=== PATIENT | female | born 1970 | race African-American/Black ===

== ENCOUNTER 2018-09-21 08:40 | Inpatient (IN) | payer OTHER, SELFPAY ==
[2018-09-21 10:50] LABS: Urine Bacteria <20 /HPF (<20); Urine Culture Reflex Order REFLEXED; Urine RBC >50 /HPF (NONE SEEN)
[2018-09-21 11:44] LABS: Absolute Lymphocytes (CBC) 3.1 K/uL (0.7-4.9); Basophils % 0.3 % (0-1.3); Hematocrit 23.6 % (36.0-45.0); Lymphocytes % 67.3 % (15.3-44.8); MPV 9.4 fL (7.6-11.3); RBC Red Blood Cell Count 4.41 M/uL (3.86-4.86)
--- NOTE | 2018-09-21 12:29 | ER ---
Nurse's Notes [facility] Name: Shauna Silva Age: 48 yrs Sex: Female : 1970 Arrival Date: 09/21/2018 Time: 08:44 Bed 20 Private MD: Diagnosis: Other abnormal uterine and vaginal bleeding;Iron deficiency anemia secondary to blood loss (chronic) Presentation: 09/21 09:02 Presenting complaint: Patient states: "I've had my menstrual period for 12 days now". aa5 Pt denies pain. Transition of care: patient was not received from another setting of care. Onset of symptoms was September 2018. Risk Assessment: Do you want to hurt yourself or someone else? Patient reports no desire to harm self or others. Initial Sepsis Screen: Does the patient meet any 2 criteria? No. Patient's initial sepsis screen is negative. Does the patient have a suspected source of infection? No. Patient's initial sepsis screen is negative. Care prior to arrival: None. 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 - Social history:: Smoking status: Patient/guardian denies using tobacco. - Ebola Screening: : No symptoms or risks identified at this time. Screenin:35 Abuse screen: Denies threats or abuse. Nutritional screening: No deficits noted. tw2 Tuberculosis screening: No symptoms or risk factors identified. Fall Risk None identified. Assessment: 09:55 General: Appears in no apparent distress. Behavior is calm, cooperative, appropriate tw2 for age. Pain: Denies pain. Neuro: Level of Consciousness is awake, alert, obeys commands, Oriented to person, place, time, situation. Cardiovascular: Heart tones S1 S2 Patient's skin is warm and dry. Respiratory: Airway is patent Respiratory effort is even, unlabored, Respiratory pattern is regular, symmetrical, Breath sounds are clear bilaterally. GI: No signs and/or symptoms were reported involving the gastrointestinal system. Abdomen is flat, non-distended. : Urine is jenn blood, Reports vaginal bleeding that is heavy flow since 12 days ago. EENT: No signs and/or symptoms were reported regarding the EENT system. Derm: No signs and/or symptoms reported regarding the dermatologic system. Musculoskeletal: Range of motion: intact in all extremities. 10:33 Reassessment: Patient appears in no apparent distress at this time. No changes from tw2 previously documented assessment. Patient and/or family updated on plan of care and expected duration. Pain level reassessed. Patient is alert, oriented x 3, equal unlabored respirations, skin warm/dry/pink. 12:00 Reassessment: Patient appears in no apparent distress at this time. No changes from tw2 previously documented assessment. Patient and/or family updated on plan of care and expected duration. Pain level reassessed. Patient is alert, oriented x 3, equal unlabored respirations, skin warm/dry/pink. 12:04 Reassessment: Dr. Cristobal at bedside discussing results and poc at this time. tw2 13:06 Reassessment: Patient appears in no apparent distress at this time. No changes from tw2 previously documented assessment. Patient and/or family updated on plan of care and expected duration. Pain level reassessed. Patient is alert, oriented x 3, equal unlabored respirations, skin warm/dry/pink. 14:00 Reassessment: Patient appears in no apparent distress at this time. No changes from tw2 previously documented assessment. Patient and/or family updated on plan of care and expected duration. Pain level reassessed. Patient is alert, oriented x 3, equal unlabored respirations, skin warm/dry/pink. 14:50 Reassessment: SEE BLOOD TRANSFUSION RECORD in pts chart. tw2 14:58 Reassessment: Patient appears in no apparent distress at this time. No changes from tw2 previously documented assessment. Patient and/or family updated on plan of care and expected duration. Pain level reassessed. Patient is alert, oriented x 3, equal unlabored respirations, skin warm/dry/pink. 16:18 Reassessment: Patient appears in no apparent distress at this time. No changes from tw2 previously documented assessment. Patient and/or family updated on plan of care and expected duration. Pain level reassessed. Patient is alert, oriented x 3, equal unlabored respirations, skin warm/dry/pink. Vital Signs: 09:04 BP 147 / 88; Pulse 68; Resp 16 S; Temp 98.2(TE); Pulse Ox 100% on R/A; Weight 71.21 kg aa5 (R); Height 5 ft. 0 in. (152.40 cm) (R); Pain 0/10; 10:33 BP 147 / 73; Pulse 63; Resp 17; Pulse Ox 100% on R/A; tw2 11:59 BP 148 / 76; Pulse 56; Resp 17; Pulse Ox 100% on R/A; tw2 13:06 BP 101 / 76; Pulse 59; Resp 17; Temp 97.9(TE); Pulse Ox 100% ; tw2 14:33 BP 145 / 62; Pulse 61; Resp 16; Temp 97.6(TE); Pulse Ox 100% on R/A; tw2 14:55 BP 143 / 73; Pulse 60; Resp 16; Temp 97.8(TE); Pulse Ox 100% on R/A; tw2 09:04 Body Mass Index 30.66 (71.21 kg, 152.40 cm) aa5 ED Course: 08:44 Patient arrived in ED. rg4 09:03 Triage completed. aa5 09:03 Arm band placed on. aa5 09:50 Jori Cristobal MD is Attending Physician. gs 09:55 Call light in reach. Side rails up X 1. Pulse ox on. NIBP on. tw2 10:04 Ankita Henry RN is Primary Nurse. tw2 11:10 Initial lab(s) drawn, by mo, sent to lab. Inserted saline lock: 22 gauge in right mh5 antecubital area, using aseptic technique. Blood collected. 11:58 Notified ED physician of a critical lab result(s). Hgb 6.3. sg 12:28 Cheng Walter MD is Hospitalizing Provider. gs 12:41 T\\T\\S Sent. tw2 15:47 No provider procedures requiring assistance completed. Patient admitted, IV remains in tw2 place. Administered Medications: No medications were administered Outcome: 12:29 Decision to Hospitalize by Provider. gs 16:17 Admitted to Med/surg accompanied by nurse, accompanied by tech, via stretcher, room tw2 231, with chart, Report called to LIZET Ray 16:17 Condition: stable 16:17 Instructed on the need for admit, Demonstrated understanding of instructions. 16:18 Patient left the ED. tw2 Signatures: Alan Anderson RN RN sg Rajwinder Treviño RN RN aa5 Ankita Henry RN RN tw2 Stephanie Brown Maria [facility] Jori Cristobal MD MD
--- NOTE | 2018-09-21 12:30 | EDPHYS ---
Physician Documentation [facility] Name: Shauna Silva Age: 48 yrs Sex: Female : 1970 Arrival Date: 09/21/2018 Time: 08:44 Bed 20 Private MD: ED Physician Jori Cristobal HPI: 09/21 11:41 This 48 yrs old Black Female presents to ER via Ambulatory with complaints of Vaginal gs Bleeding. 11:41 The patient presents with vaginal bleeding that is moderate. Onset: The gs symptoms/episode began/occurred 5 day(s) ago. Modifying factors: The symptoms are alleviated by nothing, the symptoms are aggravated by nothing. Associated signs and symptoms: Pertinent positives: cramping, Pertinent negatives: dyspareunia, dysuria, fever. Severity of symptoms: At their worst the symptoms were moderate, in the emergency department the symptoms are unchanged. The patient has experienced similar episodes in the past, a few times, period was supposed to end 5 days ago. 12:10 transfusion maybe 10 years.. 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 - Social history:: Smoking status: Patient/guardian denies using tobacco. - Ebola Screening: : No symptoms or risks identified at this time. ROS: 11:41 All other systems are negative. gs Exam: 11:41 Head/Face: Normocephalic, atraumatic. Eyes: Pupils equal round and reactive to light, gs extra-ocular motions intact. Lids and lashes normal. Conjunctiva and sclera are non-icteric and not injected. Cornea within normal limits. Periorbital areas with no swelling, redness, or edema. ENT: Nares patent. No nasal discharge, no septal abnormalities noted. Tympanic membranes are normal and external auditory canals are clear. Oropharynx with no redness, swelling, or masses, exudates, or evidence of obstruction, uvula midline. Mucous membranes moist. Neck: Trachea midline, no thyromegaly or masses palpated, and no cervical lymphadenopathy. Supple, full range of motion without nuchal rigidity, or vertebral point tenderness. No Meningismus. Chest/axilla: Normal chest wall appearance and motion. Nontender with no deformity. No lesions are appreciated. Cardiovascular: Regular rate and rhythm with a normal S1 and S2. No gallops, murmurs, or rubs. Normal PMI, no JVD. No pulse deficits. Respiratory: Lungs have equal breath sounds bilaterally, clear to auscultation and percussion. No rales, rhonchi or wheezes noted. No increased work of breathing, no retractions or nasal flaring. Abdomen/GI: Soft, non-tender, with normal bowel sounds. No distension or tympany. No guarding or rebound. No evidence of tenderness throughout. Back: No spinal tenderness. No costovertebral tenderness. Full range of motion. Skin: Warm, dry with normal turgor. Normal color with no rashes, no lesions, and no evidence of cellulitis. MS/ Extremity: Pulses equal, no cyanosis. Neurovascular intact. Full, normal range of motion. Neuro: Awake and alert, GCS 15, oriented to person, place, time, and situation. Cranial nerves II-XII grossly intact. Motor strength 5/5 in all extremities. Sensory grossly intact. Cerebellar exam normal. Normal gait. 11:41 Constitutional: The patient appears alert, awake. 11:41 : Pelvic Exam: the exam is deferred. Vital Signs: 09:04 BP 147 / 88; Pulse 68; Resp 16 S; Temp 98.2(TE); Pulse Ox 100% on R/A; Weight 71.21 kg aa5 (R); Height 5 ft. 0 in. (152.40 cm) (R); Pain 0/10; 10:33 BP 147 / 73; Pulse 63; Resp 17; Pulse Ox 100% on R/A; tw2 11:59 BP 148 / 76; Pulse 56; Resp 17; Pulse Ox 100% on R/A; tw2 13:06 BP 101 / 76; Pulse 59; Resp 17; Temp 97.9(TE); Pulse Ox 100% ; tw2 14:33 BP 145 / 62; Pulse 61; Resp 16; Temp 97.6(TE); Pulse Ox 100% on R/A; tw2 14:55 BP 143 / 73; Pulse 60; Resp 16; Temp 97.8(TE); Pulse Ox 100% on R/A; tw2 09:04 Body Mass Index 30.66 (71.21 kg, 152.40 cm) aa5 MDM: 10:52 Patient medically screened. 11:41 Differential diagnosis: dysfunctional uterine bleeding, ectopic , gs menometrorrhagia. Data reviewed: vital signs, nurses notes, lab test result(s). 12:27 Counseling: I had a detailed discussion with the patient and/or guardian regarding: the gs historical points, exam findings, and any diagnostic results supporting the discharge/admit diagnosis, lab results, the need for further work-up and treatment in the hospital. Response to treatment: There is no appreciated change of the patient's symptoms at this time, and as a result, I will admit patient. Physician consultation: Cheng Walter MD and will see patient in inpatient room. 09/21 09:50 Order name: Urine Microscopic Only; Complete Time: 11:00 09/21 10:13 Order name: UA ga 09/21 10:54 Order name: Urine Culture [facility] 09/21 11:00 Order name: CBC with Diff 09/21 12:00 Order name: T\T\S [facility] 09/21 12:47 Order name: Manual Differential [facility] 09/21 09:50 Order name: Urine Dipstick-Ancillary (obtain specimen); Complete Time: 10:30 09/21 10:09 Order name: Urine Test (obtain specimen); Complete Time: 10:30 09/21 13:20 Order name: Packed RBC Leukored [facility] 09/21 14:18 Order name: Transfuse; Complete Time: 14:57 tw2 09/21 14:18 Order name: Consent for Blood Transfusion; Complete Time: 14:26 tw2 Administered Medications: No medications were administered Disposition: 09/21/18 12:29 Hospitalization ordered by Cheng Walter for Inpatient Admission. Preliminary diagnosis are Other abnormal uterine and vaginal bleeding, Iron deficiency anemia secondary to blood loss (chronic). - Bed requested for Telemetry/MedSurg (Inpatient). - Status is Inpatient Admission. tw2 - Condition is Stable. - Problem is an acute exacerbation. - Symptoms are unchanged. UTI on Admission? No Signatures: Dispatcher [employer] [facility] Stephanie Evangelista ms, Audri, RN RN aa5 Ankita Henry RN RN tw2 Jori Cristobal MD MD Corrections: (The following items were deleted from the chart) : 11:41 Counseling: I had a detailed discussion with the patient and/or guardian regarding: the historical points, exam findings, and any diagnostic results supporting the discharge/admit diagnosis, lab results, the need for outpatient follow up, an OB/Gyne specialist, 11:41 Response to treatment: the patient's symptoms have markedly improved after gs treatment, and as a result, I will discharge patient, 15:31 12:29 Hospitalization Ordered by Cheng Walter MD for Inpatient Admission. Preliminary ms diagnosis is Other abnormal uterine and vaginal bleeding; Iron deficiency anemia secondary to blood loss (chronic). Bed requested for Telemetry/MedSurg (Inpatient). Status is Inpatient Admission. Condition is Stable. Problem is an acute exacerbation. Symptoms are unchanged. UTI on Admission? No. gs 16:18 15:31 09/21/2018 12:29 Hospitalization Ordered by Cheng Walter MD for Inpatient tw2 Admission. Preliminary diagnosis is Other abnormal uterine and vaginal bleeding; Iron deficiency anemia secondary to blood loss (chronic). Bed requested for Telemetry/MedSurg (Inpatient). Status is Inpatient Admission. Condition is Stable. Problem is an acute exacerbation. Symptoms are unchanged. UTI on Admission? No. ms
[2018-09-21 12:46] LABS: Platelet Estimate ADEQ
[2018-09-21 12:47] LABS: Anisocytosis 3+; Blood Morphology Comment NOTED (NOT SEEN); Burr Cells 1+; Hypochromasia 3+; Poikilocytosis 2+; Target Cells 1+
[2018-09-21 12:50] LABS: Elliptocytes 1+
[2018-09-21] MEDS ORDERED: NA CHLORIDE 0.9% 500 ML ONE (14:34)
[2018-09-21] MEDS: NA CHLORIDE 0.9% 1,000 ML IV SCH (17:05)
[2018-09-21 17:40] LABS: Thyroid Stimulating Hormone 0.948 uIU/mL (0.360-3.740)
[2018-09-21 17:57] LABS: Urine Appearance CLOUDY; Urine Blood 3+ (NEG); Urine Color RED; Urine Glucose NEGATIVE (NEG); Urine Protein 3+ (NEG); Urine Specific Gravity 1.015 (1.005-1.030); Urine pH 5.5 (5.0-7.0)
[2018-09-21 17:58] LABS: Urine Bilirubin NEGATIVE (NEG); Urine Microscopic Reflex NO UMIC
[2018-09-21 18:21] LABS: Urine Appearance TURBID; Urine Blood 3+ (NEG); Urine Color RED; Urine Glucose NEGATIVE (NEG); Urine Protein 3+ (NEG); Urine Specific Gravity 1.015 (1.005-1.030); Urine pH 5.5 (5.0-7.0)
[2018-09-21] MEDS ORDERED: NA CHLORIDE 0.9% 250 ML ONE (18:26)
[2018-09-21 18:30] LABS: Urine Bilirubin NEGATIVE (NEG)
[2018-09-21 18:33] LABS: Urine Bacteria <20 /HPF (<20); Urine RBC LOADED /HPF (NONE SEEN)
[2018-09-21 18:38] LABS: Urine Culture Reflex Order NOT NEEDED
--- NOTE | 2018-09-21 20:44 | P.HP ---
Certification for Inpatient Patient admitted to: Inpatient With expected LOS: >2 Midnights Practitioner: I am a practitioner with admitting privileges, knowledge of patient current condition, hospital course, and medical plan of care. Services: Services provided to patient in accordance with Admission requirements found in Title 42 Section 412.3 of the Code of Federal Regulations Patient History Date of Service: 09/21/18 Reason for admission: Symptomatic anemia History of Present Illness: This is a 48 yr old female with no pmh admitted for prolonged menstrual bleeding and symptomatic anemia. Patient reports menstrual bleeding that has been ongoing for 12 days now. Previous menses was 2 weeks prior to this cycle. Prior to that, she reports menstrual cycles Q21-30 days. She reports that the bleeding is not heavy but has been persistent. She remembers 1 prior similar episode back in the . She does have a history of tubal ligation 25 yrs ago. She does report being sexually active. Denies any vaginal discharge, vaginismus, abdominal pain, nausea/vomiting, fevers or chills. She also denies any cp, sob. She endorses having some light headedness. She decided to come to the ER for further evaluation. In the ED, she was HDS stable but was found to have a Hgb of 6.3 At the time of my exam, she was AAOx3 and in no acute distress. Allergies No Known Allergies Allergy (Verified 09/21/18 16:22) Home medications list reviewed: Yes Home Medications: NK [No Home Meds] 09/21/18 - Past Medical/Surgical History Has patient received pneumonia vaccine in the past: No Diabetic: No -: High blood pressure -: Tubal Ligation -: Normal Spontenous Delivery - Family History Mother -: GI disease, Cancer Notes: Colon Ca - Social History Smoking Status: Never smoker Alcohol use: Yes CD- Drugs: No Caffeine use: Yes Place of Residence: Home Review of Systems 10-point ROS is otherwise unremarkable Physical Examination - Vital Signs Temperature: 98.1 F Blood Pressure: 164/75 Pulse: 57 Respirations: 16 Pulse Ox (%): 100 - Physical Exam General: Alert, In no apparent distress, Oriented x3 HEENT: Atraumatic, PERRLA, Mucous membr. moist/pink, EOMI, Sclerae nonicteric Neck: Supple, 2+ carotid pulse no bruit, No LAD, Without JVD or thyroid abnormality Respiratory: Clear to auscultation bilaterally, Normal air movement Cardiovascular: Regular rate/rhythm, Normal S1 S2 Gastrointestinal: Normal bowel sounds, No tenderness Musculoskeletal: No tenderness Integumentary: No rashes Neurological: Normal gait, Normal speech, Normal strength at 5/5 x4 extr, Normal tone, Normal affect Lymphatics: No axilla or inguinal lymphadenopathy - Studies Laboratory Data (last 24 hrs) 09/21/18 11:10: WBC 4.6, Hgb 6.3 L*, Hct 23.6 L, Plt Count 251 Assessment and Plan - Problems (Diagnosis) (1) Symptomatic anemia Current Visit: Yes Status: Acute Plan: Symptomatic acute blood loss anemia, secondary to abnormal uterine bleeding - Transfuse 2 units PRBC - Repeat labs - Monitor vital signs (2) Abnormal uterine bleeding (AUB) Current Visit: Yes Status: Acute Plan: 48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 Mccarthy. Recommendations appreciated - She will likely require outpatient follow up after discharge - Plan Admit to floor, monitor labs and vital signs. Transfuse 2 units PRBCs. - Advance Directives Does patient have a Living Will: No Does patient have a Durable POA for Healthcare: No Time Spent Managing Pts Care (In Minutes): 45
--- NOTE | 2018-09-21 21:26 | CON ---
Date of Consultation: 09/21/2018 Reason For Consultation: Severe anemia, probably chronic blood loss anemia and menorrhagia. History Of Present Illness: Patient is a 48-year-old female, 4, para 4, sta tus post tubal ligation, not , presented with onset of prolonged heavy bleeding. She has bee n bleeding for the past 12 days. Her LMP is 09/10/2018, day 12 today. She has had past history of anemia and transfusion in the 1990s about 20 years ago. She has not had any treatment for this and she has been doing well. Last gynecological exam was 5 years ago at the [facility] in [place]. She complains of heavy bleeding ongoing for the 12 days with clots. In the past, she has had normal periods every 30 days, 5 days of bleeding. Cramps have been mild and are still mild in nature. Jacobo es any pelvic pain or pressure or bloating. No other pelvic symptomatology. She is sexually active, new partner for 7 months. No urinary or bowel problems. Past Medical History: Significant for hypertension, patient not on any medication. Allergies: NO KNOWN DRUG ALLERGIES. Social History: No tobacco alcohol or drug use. 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 Past Surgical History: Significant for tubal ligation. Family History: No ovarian, uterine, breast, or colon cancer. Physical Examination: Vital Signs: Temperature 98.1, 57 for pulse rate, 164/75 is the recent blood pressure, respiratory r ate of 16, saturating 100% on room air. General: Patient is lying in her bed, pale, but in no acute distress. Alert and oriented Head and Neck: Normal. Lungs: Clear. Heart: Regular rate and rhythm. Abdomen: Soft, nondistended. Slightly full in the pelvic area. Nontender. Extremities: Unremarkable. Pelvic: There is large amount of blood. Cervix very posterior. No tumor palpated on the cervix; ho wever, tumor in the pelvic cavity, fibroids bilaterally. Both adnexa not palpable due to the presenc e of the large fibroid uterus. The uterus was nontender. There was no cervical motion tenderness ei ther. Vulva, vagina are normal. Urethra is unremarkable. Laboratory Data: Her labs show hemoglobin level of 6.3 with hematocrit of 23.6, her platelet count i s 251, and absolute neutrophil count 1.2, which is low. Peripheral smear just shows signs of chronic iron-deficiency anemia. Urine is positive, not sure why there were 2 specimens sent, one from 8 o'c lock in the morning and one from 4 o'clock this evening. The 4 o'clock specimen shows nitrite positi ve, 20 of rbc's on a good clean-catch specimen. However, she is asymptomatic. Assessment And Plan: 1.Chronic iron-deficiency anemia, most likely due to blood loss, chronic blood loss from her heavy p eriods. Oral iron starting now twice a day and then blood transfusions. Currently, I would recommen d that her transfusion should be to at least the level over 9 g. This would give the patient some bu ffer to get some treatment. 2.Menorrhagia (abnormal uterine bleeding likely leiomyomata and perimenopause). Check FSH level or follicle-stimulating hormone level. Recommend ordering a transvaginal ultrasound while she is still in the hospital. She will need treatment for bleeding to acutely stop the bleeding. I would prefer to give her depot medroxyprogesterone acetate 150 mg intramuscular dose here in the hospital. Estrog en less preferred due to high risk of venous thromboembolism at this age. 3.Plan to follow this patient up after the bleeding subsides in the office and do an endometrial bio psy or endometrial sampling procedure. 4.She needs a Pap smear as well since she has not been screened in more than 5 years. 5.Hypertension. This is uncontrolled. Patient is not on any medication. We will need control and I will leave this to the hospitalist. 6.Acute bacterial cystitis, most likely. I would follow up the culture. Since I have seen the micr oscopy, felt convinced that even though she is asymptomatic at this time given the fact that she is a dmitted here and she has a large fibroid uterus that could be impairing her ability to empty her blad radha, I would treat her with Macrobid 100 b.i.d. for 7 days. We will pass this information on to the hospitalist and we will leave it to their decision. She can follow up with me in the office in 1 wee k after discharge. Patient will call me in the office. Office information given. MERRY Voice ID: [id number] Report ID: [id number]
[2018-09-22 00:03] LABS: Hematocrit 29.6 % (36.0-45.0)
[2018-09-22 06:00] LABS: Hematocrit 26.6 % (36.0-45.0); MPV 9.4 fL (7.6-11.3); RBC Red Blood Cell Count 4.64 M/uL (3.86-4.86)
[2018-09-22 06:12] LABS: Protime INR 1.24
[2018-09-22] MEDS: NA CHLORIDE 0.9% 1,000 ML IV SCH ×2 (07:07→12:25)
[2018-09-22] MEDS: NITROFURAN MACRO 100 MG CAP PO SCH ×2 (07:07→20:13)
[2018-09-22 08:02] LABS: ALT/SGPT 7 U/L (12-78); AST/SGOT 12 U/L (15-37); Albumin 3.4 g/dL (3.4-5.0); Alkaline Phosphatase 46 U/L (45-117); BUN Blood Urea Nitrogen 11 mg/dL (7-18); Bicarbonate 25 mmol/L (21-32); Bilirubin Total 1.7 mg/dL (0.2-1.0); Glucose Level 82 mg/dL (74-106); Potassium 3.6 mmol/L (3.5-5.1); Protein, Total 7.2 g/dL (6.4-8.2); Sodium Level 146 mmol/L (136-145)
[2018-09-22 08:20] LABS: Anisocytosis 3+; Blood Morphology Comment NOTED (NOT SEEN); Hypochromasia 3+; Platelet Estimate ADEQ; Poikilocytosis 1+
[2018-09-22] MEDS ORDERED: POTASSIUM CL SA 10 MEQ TAB PO ONE (09:00)
--- NOTE | 2018-09-22 10:06 | RAD REPORT ---
EXAM DESCRIPTION: US - Transvaginal Study Probe - 09/22/2018 9:28 am CLINICAL HISTORY: Endometriosis;menorrhaghia COMPARISON none FINDINGS: The uterus measures 7 x 3 x 3cm. Multiple uterine fibroids. Largest measures 10 centimeter s. Fibroids appear subserosal, intramural and submucosal. Endometrial stripe is poorly visualized secondary to distortion by fibroids. Neither ovary seen secondary to overlying bowel gas. . Right and left adnexae are unremarkable. No significant free fluid is seen. IMPRESSION: Fibroid uterus
[2018-09-22] MEDS ORDERED: NA CHLORIDE 0.9% 250 ML ONE (10:17)
[2018-09-22] MEDS ORDERED: HYDRALAZINE HCL 20 MG/ML VIAL IV ONE (11:30)
[2018-09-22] MEDS ORDERED: MEDROXYPROGEST ACET 150 MG/ML IM SCH (12:00)
--- NOTE | 2018-09-22 13:01 | P.PN ---
Subjective Date of Service: 09/22/18 Chief Complaint: Symptomatic anemia Subjective: Improving Patient seen and examined at bedside. No family at bedside. Chart reviewed and case discussed with nursing staff. Continues to have active vaginal bleeding. Improved dizziness and lightheadedness. No other complaints or concerns this morning Review of Systems 10-point ROS is otherwise unremarkable Physical Examination - Vital Signs Temperature: 97.8 F Blood Pressure: 178/82 Pulse: 58 Respirations: 17 Pulse Ox (%): 100 - Physical Exam General: Alert, In no apparent distress, Oriented x3 HEENT: Atraumatic, PERRLA, EOMI Neck: Supple, JVD not distended Respiratory: Clear to auscultation bilaterally, Normal air movement Cardiovascular: Regular rate/rhythm, Normal S1 S2 Gastrointestinal: Normal bowel sounds, No tenderness Musculoskeletal: No tenderness Integumentary: No rashes Neurological: Normal speech, Normal tone, Normal affect Lymphatics: No axilla or inguinal lymphadenopathy Assessment And Plan - Current Problems (Diagnosis) (1) Symptomatic anemia Current Visit: Yes Status: Acute Plan: Improving. symptomatic acute blood loss anemia, secondary to abnormal uterine bleeding - Transfused 2 units PRBC; hemoglobin continues to be low at 7.2. 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 - Case discussed with Dr. Mccarthy. Recommendations appreciated - 150 mg IM Depo-Provera ordered - oral iron b.i.d. ordered - transvaginal ultrasound with a fibroid uterus - FSH ordered, will be followed up as an outpatient by gynecology. (3) Fibroid uterus Current Visit: Yes Status: Acute Plan: - she will follow up with gynecology as an outpatient for further colposcopy and endometrial biopsy as needed. She will also benefit from a Pap smear as an outpatient. Will provide gynecology information upon discharge. Qualifiers: Uterine leiomyoma location: unspecified location Qualified Code(s): D25.9 - Leiomyoma of uterus, unspecified (4) Acute cystitis Current Visit: Yes Status: Acute Plan: Patient currently on Macrobid 100 mg b.i.d.. We will complete a 7 day course. Qualifiers: Hematuria presence: without hematuria Qualified Code(s): N30.00 - Acute cystitis without hematuria (5) Hypertension Current Visit: Yes Status: Chronic Plan: We will start patient on lisinopril for blood pressure control. She has a history of hypertension, though not on any medications at this time. Qualifiers: Hypertension type: essential hypertension Qualified Code(s): I10 - Essential (primary) hypertension - Plan Admit to floor, monitor labs and vital signs. Transfuse 2 units PRBCs.
[2018-09-22] MEDS: FERROUS SULFATE 325 MG TAB PO SCH (20:13)
[2018-09-22] MEDS ORDERED: HYDROCODONE/APAP 10/325 TAB PO PRN (21:32)
[2018-09-22 23:28] LABS: Hematocrit 35.6 % (36.0-45.0)
[2018-09-23 06:51] LABS: Magnesium 2.4 mg/dL (1.8-2.4); Phosphorus 3.2 mg/dL (2.5-4.9)
[2018-09-23 06:52] LABS: ALT/SGPT 9 U/L (12-78); AST/SGOT 12 U/L (15-37); Albumin 3.7 g/dL (3.4-5.0); Alkaline Phosphatase 57 U/L (45-117); BUN Blood Urea Nitrogen 14 mg/dL (7-18); Bicarbonate 24 mmol/L (21-32); Bilirubin Total 1.7 mg/dL (0.2-1.0); Glucose Level 98 mg/dL (74-106); Potassium 3.3 mmol/L (3.5-5.1); Protein, Total 7.9 g/dL (6.4-8.2); Sodium Level 143 mmol/L (136-145)
[2018-09-23 07:34] LABS: Hematocrit 35.6 % (36.0-45.0); MPV 10.1 fL (7.6-11.3)
[2018-09-23] MEDS ORDERED: POTASSIUM CL SA 10 MEQ TAB PO ONE (08:03)
[2018-09-23] MEDS: NITROFURAN MACRO 100 MG CAP PO SCH (08:44)
[2018-09-23] MEDS: FERROUS SULFATE 325 MG TAB PO SCH (08:46)
[2018-09-23 09:26] LABS: Anisocytosis 3+; Blood Morphology Comment NOTED (NOT SEEN); Hypochromasia 2+; Platelet Estimate ADEQ; Poikilocytosis 2+; Target Cells 2+; Toxic Granulation 1+
[2018-09-23] MEDS ORDERED: LISINOPRIL 10 MG TAB PO SCH (11:19)
--- NOTE | 2018-09-23 13:04 | P.DS ---
Admission Date: 09/21/18 Discharge Date: 09/23/18 Disposition: ROUTINE DISCHARGE Discharge Condition: GOOD Reason for Admission: Symptomatic anemia Consultations: Gynecology Procedures: 4 units blood transfusion - Problems (1) Symptomatic anemia Current Visit: Yes Status: Acute (2) Abnormal uterine bleeding (AUB) Current Visit: Yes Status: Acute (3) Fibroid uterus Current Visit: Yes Status: Acute Qualifiers: Uterine leiomyoma location: unspecified location Qualified Code(s): D25.9 - Leiomyoma of uterus, unspecified (4) Acute cystitis Current Visit: Yes Status: Acute Qualifiers: Hematuria presence: without hematuria Qualified Code(s): N30.00 - Acute cystitis without hematuria (5) Hypertension Current Visit: Yes Status: Chronic Qualifiers: Hypertension type: essential hypertension Qualified Code(s): I10 - Essential (primary) hypertension Brief History of Present Illness: This is a 48 yr old female with no pmh admitted for prolonged menstrual bleeding and symptomatic anemia. Patient reports menstrual bleeding that has been ongoing for 12 days now. Previous menses was 2 weeks prior to this cycle. Prior to that, she reports menstrual cycles Q21-30 days. She reports that the bleeding is not heavy but has been persistent. She remembers 1 prior similar episode back in the . She does have a history of tubal ligation 25 yrs ago. She does report being sexually active. Denies any vaginal discharge, vaginismus, abdominal pain, nausea/vomiting, fevers or chills. She also denies any cp, sob. She endorses having some light headedness. She decided to come to the ER for further evaluation. In the ED, she was HDS stable but was found to have a Hgb of 6.3 At the time of my exam, she was AAOx3 and in no acute distress. Hospital Course: Patient was admitted for symptomatic anemia after prolonged menses, menstrual bleeding/ abnormal uterine bleeding. Gynecology was consulted. She was given 4 units PRBCs over the stay. Hemoglobin stabilized to above 10 x 2. She was given 150 mg IM Depo-Provera x1. She was started on oral iron. Transvaginal ultrasound was done which showed a fibroid uterus. FSH was ordered, I would send out lab and will be followed up by outpatient gynecology. She was also started on Macrobid 100 mg b.i.d. to complete a 7 day course for acute cystitis. Urine cultures did remain negative though. She was treated for UTI due to her fibroid uterus that may make it difficult for bladder emptying, increased interest for her urinary tract infection. Her blood pressure was high. Patient states that she had a history of hypertension, has not been on any medications for a year now. She was started on lisinopril, discharged on lisinopril for blood pressure control. She otherwise remained stable throughout the stay. Prior to discharge, she was alert oriented x3, in no acute distress and hemodynamically stable. She will follow up with her primary care physician in 2-3 days for further management for hypertension. She will also follow up with outpatient oncology in 2 weeks for further management of her fibroids and abnormal uterine bleeding. Her diagnoses and treatment plan were explained to her, all questions were answered sugar misunderstanding. She was then discharged home a safe and stable manner. ER precautions were provided to patient. Vital Signs/Physical Exam: Temp Pulse Resp BP Pulse Ox 98.2 F 62 18 159/80 H 97 09/23/18 08:00 09/23/18 12:00 09/23/18 08:00 09/23/18 12:00 09/23/18 08:00 General: Alert, In no apparent distress, Oriented x3 HEENT: Atraumatic, PERRLA, EOMI Neck: Supple, JVD not distended Respiratory: Clear to auscultation bilaterally, Normal air movement Cardiovascular: Regular rate/rhythm, Normal S1 S2 Gastrointestinal: Normal bowel sounds, No tenderness Musculoskeletal: No tenderness Integumentary: No rashes Neurological: Normal speech, Normal tone, Normal affect Lymphatics: No axilla or inguinal lymphadenopathy Laboratory Data at Discharge: WBC 9.3 K/uL (4.3-10.9) D 09/23/18 05:39 Hgb 10.7 g/dL (12.0-15.0) L 09/23/18 05:39 Hct 35.6 % (36.0-45.0) L 09/23/18 05:39 Plt Count 302 K/uL (152-406) D 09/23/18 05:39 PT 14.5 SECONDS (9.5-12.5) H 09/22/18 05:26 INR 1.24 09/22/18 05:26 Sodium 143 mmol/L (136-145) 09/23/18 05:39 Potassium 3.3 mmol/L (3.5-5.1) L 09/23/18 05:39 BUN 14 mg/dL (7-18) 09/23/18 05:39 Creatinine 0.72 mg/dL (0.55-1.3) 09/23/18 05:39 Glucose 98 mg/dL (74-106) 09/23/18 05:39 Phosphorus 3.2 mg/dL (2.5-4.9) 09/23/18 05:39 Magnesium 2.4 mg/dL (1.8-2.4) 09/23/18 05:39 Total Bilirubin 1.7 mg/dL (0.2-1.0) H 09/23/18 05:39 AST 12 U/L (15-37) L 09/23/18 05:39 ALT 9 U/L (12-78) L 09/23/18 05:39 Alkaline Phosphatase 57 U/L (45-117) 09/23/18 05:39 Home Medications: Ferrous Sulfate [Ferrous Sulfate*] 325 mg PO BID #60 tab 09/23/18 Lisinopril [Prinivil*] 10 mg PO DAILY #30 tab 09/23/18 Nitrofuran Macro [Macrobid*] 100 mg PO BID #10 cap 09/23/18 New Medications: Ferrous Sulfate [Ferrous Sulfate*] 325 mg PO BID #60 tab Lisinopril [Prinivil*] 10 mg PO DAILY #30 tab Nitrofuran Macro [Macrobid*] 100 mg PO BID #10 cap Patient Discharge Instructions: Please follow-up with Dr. Mccarthy in 1 week for endometrial biopsy. Please follow up with the primary care physician in 2- 3 days. Diet: Regular Activity: Ad flynn Followup: Elba Mccarthy MD [PROVISIONAL ASSOCIATE ACTIVE] - Time spent managing pt's care (in minutes): 45
== END 2018-09-23 15:28 | disposition home or self-care (01) | DRG 812 ==
LOC: ER 08:40 → ERHOLD 12:33 → 2ND 15:52
PROVIDERS: ADMIT Family Medicine; ATTEND Family Medicine
PROC: 30233N1 Transfusion of Nonautologous Red Blood Cells into Peripheral Vein, Percutaneous Approach (ICD-10-PCS; principal; 2018-09-21)
DX: D62 Acute posthemorrhagic anemia (principal); N30.00 Acute cystitis without hematuria; D25.9 Leiomyoma of uterus, unspecified; D50.0 Iron deficiency anemia secondary to blood loss (chronic); I10 Essential (primary) hypertension
CPT/HCPCS: 36415; 36430; 76830; 80053; 81001; 81003; 81015; 82607; 82728; 82746; 83001; 83540; 83735; 84100; 84132; 84439; 84443; 85014; 85018; 85025; 85044; 85610; 86850; 86900; 86901; 86922; 87086; 87088; 94760; 99285; J0360; J1050; J7030; P9016

== ENCOUNTER 2018-12-04 11:06 | Emergency (ER) | payer SELFPAY ==
[2018-12-04 13:08] LABS: Protime INR 1.06
[2018-12-04 13:17] LABS: BUN Blood Urea Nitrogen 15 mg/dL (7-18); Bicarbonate 29 mmol/L (21-32); Glucose Level 72 mg/dL (74-106); Potassium 3.5 mmol/L (3.5-5.1); Sodium Level 142 mmol/L (136-145)
[2018-12-04 13:20] LABS: Urine Bacteria <20 /HPF (<20); Urine Culture Reflex Order NOT NEEDED; Urine RBC <5 /HPF (NONE SEEN)
[2018-12-04 13:21] LABS: Urine Blood 2+ (NEG); Urine Glucose NEGATIVE (NEG); Urine Protein NEGATIVE (NEG); Urine pH 5.5 (5.0-7.0)
[2018-12-04 13:37] LABS: MPV 9.3 fL (7.6-11.3); RBC Red Blood Cell Count 4.17 M/uL (3.86-4.86)
[2018-12-04 13:46] LABS: Absolute Lymphocytes (CBC) 1.6 K/uL (0.7-4.9); Basophils % 0.9 % (0-1.3); Lymphocytes % 30.6 % (15.3-44.8)
[2018-12-04 14:01] LABS: Anisocytosis 2+; Blood Morphology Comment NOTED (NOT SEEN); Platelet Estimate ADEQ; Platelets, Giant PRESENT; Urine White Blood Cell Casts OK
--- NOTE | 2018-12-04 14:15 | EDPHYS ---
Physician Documentation [facility] Name: Shauna Silva Age: 48 yrs Sex: Female : 1970 Arrival Date: 12/04/2018 Time: 11:08 Bed 24 Private MD: ED Physician Jori Cristobal HPI: 12/04 15:06 This 48 yrs old Black Female presents to ER via Ambulatory with complaints of Vaginal gs Bleeding. 15:06 Onset: The symptoms/episode began/occurred 4 month(s) ago. Modifying factors: The gs symptoms are alleviated by nothing, the symptoms are aggravated by nothing. Associated signs and symptoms: Pertinent negatives: sob. Severity of symptoms: At their worst the symptoms were moderate, in the emergency department the symptoms are unchanged. The patient has experienced similar episodes in the past, multiple times. 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 - Social history:: Smoking status: Patient/guardian denies using tobacco. - Ebola Screening: : Patient denies travel to an Ebola-affected area in the 21 days before illness onset. ROS: 15:06 All other systems are negative. gs Exam: 15:06 Head/Face: Normocephalic, atraumatic. Eyes: Pupils equal round and reactive to light, gs extra-ocular motions intact. Lids and lashes normal. Conjunctiva and sclera are non-icteric and not injected. Cornea within normal limits. Periorbital areas with no swelling, redness, or edema. ENT: Nares patent. No nasal discharge, no septal abnormalities noted. Tympanic membranes are normal and external auditory canals are clear. Oropharynx with no redness, swelling, or masses, exudates, or evidence of obstruction, uvula midline. Mucous membranes moist. Neck: Trachea midline, no thyromegaly or masses palpated, and no cervical lymphadenopathy. Supple, full range of motion without nuchal rigidity, or vertebral point tenderness. No Meningismus. Chest/axilla: Normal chest wall appearance and motion. Nontender with no deformity. No lesions are appreciated. Cardiovascular: Regular rate and rhythm with a normal S1 and S2. No gallops, murmurs, or rubs. Normal PMI, no JVD. No pulse deficits. Respiratory: Lungs have equal breath sounds bilaterally, clear to auscultation and percussion. No rales, rhonchi or wheezes noted. No increased work of breathing, no retractions or nasal flaring. Abdomen/GI: Soft, non-tender, with normal bowel sounds. No distension or tympany. No guarding or rebound. No evidence of tenderness throughout. Back: No spinal tenderness. No costovertebral tenderness. Full range of motion. Skin: Warm, dry with normal turgor. Normal color with no rashes, no lesions, and no evidence of cellulitis. MS/ Extremity: Pulses equal, no cyanosis. Neurovascular intact. Full, normal range of motion. Neuro: Awake and alert, GCS 15, oriented to person, place, time, and situation. Cranial nerves II-XII grossly intact. Motor strength 5/5 in all extremities. Sensory grossly intact. Cerebellar exam normal. Normal gait. 15:06 Constitutional: The patient appears alert, awake. Vital Signs: 11:32 BP 149 / 97; Pulse 79; Resp 18; Temp 98.2; Pulse Ox 100% on R/A; Weight 72.57 kg (R); aj1 Height 5 ft. 2 in. (157.48 cm) (R); Pain 0/10; 13:28 BP 157 / 92; Pulse 67; Resp 19; Temp 99.2(O); Pulse Ox 100% ; lt1 14:24 BP 153 / 78; Pulse 81; Resp 16 S; Pulse Ox 100% on R/A; ca1 11:32 Body Mass Index 29.26 (72.57 kg, 157.48 cm) aj1 MDM: 12:16 Patient medically screened. 15:06 Differential diagnosis: dysmenorrhea, uterine fibroids. Data reviewed: vital signs, nurses notes. Counseling: I had a detailed discussion with the patient and/or guardian regarding: the historical points, exam findings, and any diagnostic results supporting the discharge/admit diagnosis, the need for outpatient follow up, an OB/Gyne specialist. Response to treatment: the patient's symptoms have markedly improved after treatment, and as a result, I will discharge patient. 12/04 12:08 Order name: CBC with Diff; Complete Time: 14:10 12/04 12:08 Order name: Urine Microscopic Only; Complete Time: 14:10 12/04 12:15 Order name: Basic Metabolic Panel; Complete Time: 14:10 12/04 12:15 Order name: Protime (+inr); Complete Time: 14:10 12/04 13:14 Order name: Urine Dipstick--Ancillary (enter results); Complete Time: 14:10 12/04 13:14 Order name: Urine --Ancillary (enter results); Complete Time: 14:10 12/04 12:08 Order name: Urine Test (obtain specimen); Complete Time: 12:52 12/04 12:08 Order name: Urine Dipstick-Ancillary (obtain specimen); Complete Time: 12:52 12/04 13:16 Order name: Labs - recollect needed; Complete Time: 13:23 12/04 14:00 Order name: CBC Smear Scan; Complete Time: 14:10 EDMS Administered Medications: No medications were administered Disposition: 12/04/18 14:14 Discharged to Home. Impression: Other abnormal uterine and vaginal bleeding. - Condition is Stable. - Discharge Instructions: Iron Deficiency Anemia, Adult, Dysfunctional Uterine Bleeding. - Medication Reconciliation Form, Thank You Letter, Antibiotic Education, Prescription Opioid Use form. - Follow up: Dru Valencia MD; When: 2 - 3 days; Reason: Re-evaluation by your physician. - Notes: continue iron medication Signatures: Dispatcher [employer] EDMS Kia Duggan RN RN aj1 Jori Cristobal MD MD Marcela Dang Marce Brunson RN RN ca1 Corrections: (The following items were deleted from the chart) 14:25 14:14 12/04/2018 14:14 Discharged to Home. Impression: Other abnormal uterine and ca1 vaginal bleeding. Condition is Stable. Forms are Medication Reconciliation Form, Thank You Letter, Antibiotic Education, Prescription Opioid Use. Follow up: Dru Valencia; When: 2 - 3 days; Reason: Re-evaluation by your physician.
--- NOTE | 2018-12-04 14:15 | ER ---
Nurse's Notes 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 Transition of care: patient was not received from another setting of care. Onset of symptoms was September 2018. Risk Assessment: Do you want to hurt yourself or someone else? Patient reports no desire to harm self or others. Initial Sepsis Screen: Does the patient meet any 2 criteria? No. Patient's initial sepsis screen is negative. Does the patient have a suspected source of infection? No. Patient's initial sepsis screen is negative. Care prior to arrival: None. 11:29 Method Of Arrival: Ambulatory aj1 11:29 Acuity: MCKENZIE 3 aj1 Triage Assessment: 11:32 General: Appears in no apparent distress. comfortable, Behavior is calm, cooperative, aj1 appropriate for age. Pain: Denies pain. Neuro: Level of Consciousness is awake, alert, obeys commands. Cardiovascular: Patient's skin is warm and dry. Respiratory: Airway is patent Respiratory effort is even, unlabored, Respiratory pattern is regular, symmetrical. GI: No signs and/or symptoms were reported involving the gastrointestinal system. : Reports vaginal bleeding that is bright red. 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 - Social history:: Smoking status: Patient/guardian denies using tobacco. - Ebola Screening: : Patient denies travel to an Ebola-affected area in the 21 days before illness onset. Screenin:15 Abuse screen: Denies threats or abuse. Denies injuries from another. Nutritional ca1 screening: No deficits noted. Tuberculosis screening: No symptoms or risk factors identified. Fall Risk IV access (20 points). Assessment: 12:15 General: Appears in no apparent distress. comfortable, Behavior is calm, cooperative, ca1 appropriate for age. Pain: Denies pain. Neuro: Level of Consciousness is awake, alert, obeys commands, Oriented to person, place, time, situation, Appropriate for age. Cardiovascular: Heart tones S1 S2 present Capillary refill < 3 seconds Patient's skin is warm and dry. Respiratory: Airway is patent Respiratory effort is even, unlabored, Respiratory pattern is regular, symmetrical, Breath sounds are clear bilaterally. GI: Abdomen is round non-distended, Bowel sounds present X 4 quads. Abd is soft and non tender X 4 quads. : Reports vaginal bleeding that is bright red, moderate flow, since September. EENT: No deficits noted. No signs and/or symptoms were reported regarding the EENT system. Derm: Skin is intact, is healthy with good turgor, Skin is pink, warm \\T\\ dry. Musculoskeletal: Circulation, motion, and sensation intact. Capillary refill < 3 seconds, Range of motion: intact in all extremities. 13:10 Reassessment: Patient appears in no apparent distress at this time. Patient and/or ca1 family updated on plan of care and expected duration. Pain level reassessed. Patient is alert, oriented x 3, equal unlabored respirations, skin warm/dry/pink. 14:05 Reassessment: Patient appears in no apparent distress at this time. Patient and/or ca1 family updated on plan of care and expected duration. Pain level reassessed. Patient is alert, oriented x 3, equal unlabored respirations, skin warm/dry/pink. Vital Signs: 11:32 BP 149 / 97; Pulse 79; Resp 18; Temp 98.2; Pulse Ox 100% on R/A; Weight 72.57 kg (R); aj1 Height 5 ft. 2 in. (157.48 cm) (R); Pain 0/10; 13:28 BP 157 / 92; Pulse 67; Resp 19; Temp 99.2(O); Pulse Ox 100% ; lt1 14:24 BP 153 / 78; Pulse 81; Resp 16 S; Pulse Ox 100% on R/A; ca1 11:32 Body Mass Index 29.26 (72.57 kg, 157.48 cm) aj1 ED Course: 11:08 Patient arrived in ED. as 11:31 Triage completed. aj1 11:32 Arm band placed on Patient placed in waiting room, Patient notified of wait time. aj1 12:08 Jori Cristobal MD is Attending Physician. gs 12:11 Marce Brunson, RN is Primary Nurse. ca1 12:15 Patient has correct armband on for positive identification. Placed in gown. Bed in low ca1 position. Call light in reach. Side rails up X 1. Pulse ox on. NIBP on. Warm blanket given. 12:50 No provider procedures requiring assistance completed. Initial lab(s) drawn, by me, ca1 sent to lab. Inserted saline lock: 22 gauge in right antecubital area, using aseptic technique. Blood collected. 12:51 CBC with Diff Sent. ca1 12:51 Basic Metabolic Panel Sent. ca1 12:51 Protime (+inr) Sent. ca1 13:23 Lab(s) recollected, by me, sent to lab. ca1 14:13 Dru Valencia MD is Referral Physician. gs 14:24 IV discontinued, intact, bleeding controlled, No redness/swelling at site. Pressure ca1 dressing applied. Administered Medications: No medications were administered Outcome: 14:14 Discharge ordered by . gs 14:24 Discharged to home ambulatory. ca1 14:24 Condition: stable 14:24 Discharge instructions given to patient, Instructed on discharge instructions, follow up and referral plans. Demonstrated understanding of instructions, follow-up care. 14:25 Patient left the ED. ca1 Signatures: Kia Duggan, RN RN aj1 Giovanna Shanks as Jori Cristobal MD MD Marce Brunson RN RN ca1 Roshni House [facility]
[2018-12-04 15:10] VITALS: O2SAT 100
[2018-12-04 15:11] VITALS: TEMP 99.2
[2018-12-04 15:12] VITALS: BP 153/78
== END 2018-12-04 14:25 | disposition home or self-care (01) ==
LOC: ER 11:06
DX: N93.8 Other specified abnormal uterine and vaginal bleeding (principal); I10 Essential (primary) hypertension
CPT/HCPCS: 36415; 80048; 81003; 81015; 81025; 85025; 85610; 99283

== ENCOUNTER 2019-04-23 08:09 | Day surgery (SDC) | payer OTHER ==
[2019-04-23] MEDS ORDERED: DIPHENHYDRAMINE 25 MG TAB/CAP ONE (08:33)
[2019-04-23] MEDS ORDERED: NA CHLORIDE 0.9% 250 ML ONE (08:41)
[2019-04-23 10:15] VITALS: BP 147/79; TEMP 99; O2SAT 100; BMI 31.1
[2019-04-23] MEDS ORDERED: NA CHLORIDE 0.9% 500 ML ONE (10:52)
[2019-04-23 14:35] LABS: Absolute Lymphocytes (CBC) 3.4 K/uL (0.7-4.9); Hematocrit 25.5 % (36.0-45.0); Lymphocytes % 50.8 % (15.3-44.8); MPV 9.2 fL (7.6-11.3); RBC Red Blood Cell Count 4.24 M/uL (3.86-4.86)
[2019-04-23 14:56] LABS: Anisocytosis 3+; Blood Morphology Comment NOTED (NOT SEEN); Platelet Estimate ADEQ
[2019-04-23 14:57] LABS: Hypochromasia 3+
== END 2019-04-23 14:20 | disposition home or self-care (01) ==
LOC: DS 08:09
PROVIDERS: ATTEND Clinical Nurse Specialist Women's Health
DX: D50.0 Iron deficiency anemia secondary to blood loss (chronic) (principal); I10 Essential (primary) hypertension
CPT/HCPCS: 85025; 36415; 86900; 86850; 86901; 86922 ×2; 36430; P9016 ×2; J7030; J7040

== ENCOUNTER 2019-05-08 06:17 | Day surgery (SDC) | payer OTHER ==
--- NOTE | 2019-05-03 11:30 | EKG ---
Test Date: 2019-05-03 Test Time: 10:48:20 Brush Washer: MANJINDER MEASUREMENT RESULTS: Intervals: Rate: 61 WY: 156 QRSD: 88 QT: 398 QTc: 400 [place]: P: 52 WY: 156 QRS: 6 T: 3 INTERPRETIVE STATEMENTS: Normal sinus rhythm Moderate voltage criteria for LVH, may be normal variant Nonspecific ST abnormality Abnormal ECG No previous ECG available for comparison Electronically Signed On 05-03-19 11:29:00 PAIN MANAGEMENT NURSE by Tawanda Al
[2019-05-08] MEDS ORDERED: NA CHLORIDE 0.9% 250 ML ONE (06:29)
[2019-05-08 07:22] VITALS: O2SAT 100
[2019-05-08] MEDS ORDERED: Ringers Lactate 1,000 ML IV ONE (07:55)
[2019-05-08] MEDS ORDERED: propofoL 200 MG/20 ML VIAL IV ONE (08:08)
[2019-05-08] MEDS ORDERED: LIDOCAINE 2% MPF 5 ML VIAL ONE (08:09)
[2019-05-08] MEDS ORDERED: FENTANYL CITR 100 MCG/2 ML ONE (08:09)
[2019-05-08] MEDS ORDERED: MIDAZOLAM HCL 2 MG/2 ML INJ ONE (08:09)
[2019-05-08] MEDS ORDERED: LABETALOL 20 MG/4ML SYRINGE IV ONE (09:59)
[2019-05-08] MEDS ORDERED: NA CHLORIDE 0.9% 1,000 ML ONE (10:27)
[2019-05-08] MEDS ORDERED: LIDOCAINE 1% W/EPI 1:100,000 MDV 20 ML VIAL ONE (10:27)
[2019-05-08 11:03] LABS: Hematocrit 26.9 % (36.0-45.0)
[2019-05-08] MEDS ORDERED: HYDROCODONE/APAP 7.5/325 MG TAB ONE (11:47)
[2019-05-08 12:18] VITALS: BP 128/71
[2019-05-08 12:23] VITALS: TEMP 98.2
--- NOTE | 2019-05-08 19:49 | OP ---
Date of Procedure: 05/08/2019 Surgeon: Elba Mccarthy MD Campus Coordinator: No assistants. Preoperative Diagnoses: Menorrhagia, multiple fibroids, and anemia. Postoperative Diagnoses: Menorrhagia, multiple fibroids, and anemia. Procedure Performed: Hysteroscopy, dilation and curettage. Anesthesia: MAC plus paracervical block. Complications: None. Drains: None. Specimens: Endometrial curettings. Findings: Uterus about 22 to 24 week size, sounding length 22 cm. Intracavitary fibroids were also seen. Endometrium otherwise unremarkable. No irregularity. Adequate endometrial sampling was obtai kareem. Description Of Procedure: The patient is a 48-year-old with anemia and heavy periods, evaluated in t he office for a transvaginal ultrasound. Multiple large fibroids, difficult exam. Cervix very high. She was consented for endometrial sampling and cavity visualization here in the OR under anesthesia . She also had a hemoglobin of 6 g. She was transfused and her hemoglobin still was just over 7 g, so she was brought in today for a transfusion and then sampling and endometrial curettage. Description Of Procedure: After informed consent was verified, the patient was taken back to OR. Sh katelin had 2 units of blood transfused prior to the procedure, taken back to the OR after MAC was given, p laced in a dorsal lithotomy position using Juanito stirrups. Speculum placed to expose the cervix, pre pped x3 with Betadine was then after injection with 1% lidocaine mixed with 1:100,000 epinephrine, 10 cc at 12 o'clock on the cervix and 4 and 8 o'clock positions of the cervicovaginal junction for a pa racervical block. Then, a SlimLine diagnostic hysteroscope was used to enter the uterine cavity ante flexed canal. Endometrium thickened, small submucosal leiomyomata seen, tiny polyp was also seen in the posterior wall. Scope removed. Endometrial curettings performed with a curette. All the specim ens were handed off for permanent pathology. Instruments removed. Instrument and sponge counts were correct at the end of the case. The patient tolerated the procedure well. She will follow up with me in 1 week. She will have a post transfusional hematocrit 2 hours from her end time of transfusion and she will be discharged home. I will follow up the results. MERRY Voice ID: [id number] Report ID: [id number]
== END 2019-05-08 12:00 | disposition home or self-care (01) ==
LOC: OR 06:17
PROVIDERS: ATTEND Obstetrics & Gynecology
PROC: 0UJD8ZZ Inspection of Uterus and Cervix, Via Natural or Artificial Opening Endoscopic (ICD-10-PCS; 2019-05-08)
PROC: 30233N1 Transfusion of Nonautologous Red Blood Cells into Peripheral Vein, Percutaneous Approach (ICD-10-PCS; 2019-05-08)
PROC: 0UDB7ZX Extraction of Endometrium, Via Natural or Artificial Opening, Diagnostic (ICD-10-PCS; principal; 2019-05-08 08:30)
DX: N92.1 Excessive and frequent menstruation with irregular cycle (principal); D25.9 Leiomyoma of uterus, unspecified; D50.0 Iron deficiency anemia secondary to blood loss (chronic); I10 Essential (primary) hypertension; Z80.0 Family history of malignant neoplasm of digestive organs
CPT/HCPCS: 93005; 36415; 86900; 86850; 81025; 86901; 88305; 85018; 85014; 86922; 58558; 36430; J2704; J3010; P9016; J7120; J7030 ×2; J2250

== ENCOUNTER → 2019-07-10 | Day surgery (SDC) | payer OTHER ==
[2019-07-08 16:19] LABS: Hematocrit 25.2 % (36.0-45.0); MPV 9.4 fL (7.6-11.3); RBC Red Blood Cell Count 4.18 M/uL (3.86-4.86)
[2019-07-08 18:59] LABS: Anisocytosis 2+; Blood Morphology Comment NOTED (NOT SEEN); Platelet Estimate ADEQ; Poikilocytosis 3+
[~2019-07-10] MED LIST: CEFAZOLIN/SWI 2gm 0 GM/0 ML SYR ONE; NA CHLORIDE 0.9% 250 ML ONE; Ringers Lactate 0 ML IV ONE
[2019-07-10 17:30] VITALS: TEMP 98.8; O2SAT 100
[2019-07-10 18:50] VITALS: BP 164/82
[2019-07-10 18:57] LABS: Hematocrit 30.5 % (36.0-45.0)
== END ==
LOC: DS 11:45
PROVIDERS: ATTEND Obstetrics & Gynecology
PROC: 30233N1 Transfusion of Nonautologous Red Blood Cells into Peripheral Vein, Percutaneous Approach (ICD-10-PCS; principal; 2019-07-10)
DX: D50.0 Iron deficiency anemia secondary to blood loss (chronic) (principal); N92.0 Excessive and frequent menstruation with regular cycle; D25.0 Submucous leiomyoma of uterus
CPT/HCPCS: 36415; 36430; 85014; 85018; 85025; 86850; 86900; 86901; 86922; J7030; P9016

== ENCOUNTER 2019-07-11 06:33 | Inpatient (IN) | payer OTHER ==
[2019-07-08 16:18] LABS: Urine Appearance CLEAR; Urine Bilirubin NEGATIVE (NEG); Urine Blood NEGATIVE (NEG); Urine Color YELLOW; Urine Glucose NEGATIVE (NEG); Urine Protein NEGATIVE (NEG); Urine Specific Gravity 1.015 (1.005-1.030)
[2019-07-08 16:25] LABS: Urine Microscopic Reflex NO UMIC
[2019-07-11 06:52] LABS: Specific Gravity 1.015 (1.005-1.030)
[2019-07-11] MEDS ORDERED: LIDOCAINE 2% MPF 5 ML VIAL ONE (07:18)
[2019-07-11] MEDS ORDERED: propofoL 200 MG/20 ML VIAL IV ONE (07:18)
[2019-07-11] MEDS ORDERED: KETOROLAC 30 MG/ML INJ ONE (07:18)
[2019-07-11] MEDS ORDERED: FENTANYL CITR 100 MCG/2 ML ONE (07:18)
[2019-07-11] MEDS ORDERED: dexAMETHasone 10 MG/ML VIAL ONE (07:18)
[2019-07-11] MEDS ORDERED: ROCURONIUM 50 MG/5 ML VIAL IV ONE (07:18)
[2019-07-11] MEDS ORDERED: ONDANSETRON 4 MG/2 ML VIAL ONE (07:19)
[2019-07-11] MEDS ORDERED: MIDAZOLAM HCL 2 MG/2 ML INJ ONE (07:19)
[2019-07-11] MEDS ORDERED: Ringers Lactate 1,000 ML IV ONE ×2 (07:24→21:31)
[2019-07-11] MEDS ORDERED: BUPIVACAINE 0.25% PF 10 ML VIAL ONE (07:34)
[2019-07-11] MEDS ORDERED: GLYCOPYRROLATE 0.2 MG/ML SYR ONE (08:47)
[2019-07-11] MEDS ORDERED: NS 0.9% VIAL 20 ML ONE (08:47)
[2019-07-11] MEDS ORDERED: NEOSTIGMINE 1 MG/ML -5 ML ONE (08:47)
[2019-07-11] MEDS ORDERED: VECURONIUM 10 MG/VIAL IV ONE (08:47)
[2019-07-11] MEDS ORDERED: CEFAZOLIN/SWI 2gm 2 GM/20 ML SYR ONE (08:48)
[2019-07-11] MEDS ORDERED: SCOPOLAMINE HYDROBROMIDE PATCH TD ONE (08:48)
[2019-07-11] MEDS ORDERED: HYDROMORPHONE HCL 1 MG/ML INJ ONE (08:54)
[2019-07-11] MEDS ORDERED: NA CHLORIDE 0.9% 1,000 ML ONE (09:02)
[2019-07-11] MEDS ORDERED: HYDRALAZINE HCL 20 MG/ML VIAL ONE (10:08)
[2019-07-11] MEDS ORDERED: LABETALOL 20 MG/4ML SYRINGE IV ONE (10:08)
[2019-07-11] MEDS: Ringers Lactate 1,000 ML IV ONE ×2 (11:11→11:45)
[2019-07-11] MEDS: HYDROMORPHONE HCL 1 MG/ML INJ ONE ×2 (12:00→12:05)
[2019-07-11] MEDS ORDERED: PROMETHAZINE INJ 25 MG/ML AMP ONE (12:09)
[2019-07-11] MEDS ORDERED: MORPHINE/NS PCA 50 MG/50 ML PCA.SYRING IV PRN (12:41)
[2019-07-11] MEDS ORDERED: PROMETHAZINE INJ 25 MG/ML AMP IV PRN (12:44)
[2019-07-11] MEDS ORDERED: ONDANSETRON 4 MG/2 ML VIAL IV PRN (12:44)
[2019-07-11] MEDS ORDERED: PROMETHAZINE 25 MG TABLET PO PRN (12:44)
[2019-07-11] MEDS ORDERED: NALOXONE 0.4 MG/ML VIAL IV PRN (13:16)
[2019-07-11] MEDS ORDERED: HYDROCODONE/APAP 5/325 MG TAB PO PRN (13:21)
[2019-07-11 14:24] LABS: Hematocrit 30.3 % (36.0-45.0)
[2019-07-11] MEDS ORDERED: HYDRALAZINE HCL 20 MG/ML VIAL IV PRN (14:45)
[2019-07-11] MEDS: LABETALOL 20 MG/4ML SYRINGE IV PRN ×2 (14:54→15:09)
[2019-07-11] MEDS: KETOROLAC 30 MG/ML INJ IV PRN (16:07)
--- NOTE | 2019-07-11 17:05 | P.CNS ---
Date of Consult: 07/11/19 Reason for Consult: Management of hypertension Requesting Physician: Elba Mccarthy Primary Care Provider: Tracy Chief Complaint: Vaginal bleeding History of Present Illness: Patient was admitted to the [facility] for a total abdominal hysterectomy with bilateral oophorectomy and cystoscopy. Patient had procedure this morning and is currently recovering in [facility] where it is anticipated she will stay for the next approximately 2 days. The hospitalist team was consulted to manage this patient's hypertension. - Past Medical/Surgical History Diabetic: No -: High blood pressure -: Tubal Ligation -: Normal Spontenous Delivery - Family History Mother Medical History: GI disease, Cancer Notes: Colon Ca - Social History Smoking Status: Never smoker Alcohol use: Yes CD- Drugs: No Caffeine use: Yes <Roberth Hu - Last Filed: 07/11/19 16:59> <Suhail Chawla - Last Filed: 07/11/19 18:10> Allergies No Known Allergies Allergy (Verified 07/08/19 15:26) Home Medications: Ferrous Sulfate [Ferrous Sulfate*] 27 mg PO DAILY 05/03/19 Metoprolol Succinate 25 mg PO DAILY 05/03/19 Ascorbic Acid [Vitamin C] 1,000 mg PO DAILY 07/08/19 Review of Systems General: Unremarkable Eyes: Unremarkable ENT: Unremarkable Respiratory: Unremarkable Cardiovascular: Unremarkable Gastrointestinal: Unremarkable Genitourinary: Unremarkable Integumentary: Other (Surgical wound to the abdomen) Neurological: Unremarkable Lymphatics: Unremarkable <Roberth Hu - Last Filed: 07/11/19 16:59> Physical Examination Temp Pulse Resp BP Pulse Ox 97.2 F 93 H 20 171/104 H 99 07/11/19 15:12 07/11/19 15:31 07/11/19 15:12 07/11/19 15:31 07/11/19 15:12 General: Alert, In no apparent distress, Oriented x3 HEENT: Atraumatic, Normocephalic Neck: Supple Respiratory: Normal air movement Cardiovascular: No edema Capillary refill: <2 Seconds Neurological: Normal speech Laboratory Data (last 24 hrs) 07/11/19 13:34: Hgb 9.3 L, Hct 30.3 L <Roberth Hu - Last Filed: 07/11/19 16:59> Temp Pulse Resp BP Pulse Ox 97.2 F 98 H 20 155/98 H 99 07/11/19 15:12 07/11/19 17:39 07/11/19 15:12 07/11/19 17:39 07/11/19 15:12 Laboratory Data (last 24 hrs) 07/11/19 13:34: Hgb 9.3 L, Hct 30.3 L <Suhail Chawla - Last Filed: 07/11/19 18:10> Conclusions/Impression: Assessment Status post total abdominal hysterectomy with bilateral oophorectomy and a cystoscopy Hypertension Plan Status post total abdominal hysterectomy with bilateral oophorectomy and a cystoscopy- this condition to be managed by gynecology. Will continue to provide management of patient's chronic hypertension during this hospitalization. Appreciate input from gynecology. Hypertension- Will continue patient's home medication. Will continue to monitor patient's blood pressure throughout this hospitalization. Will adjust patient's home medication as needed. Patient reports that she saw her primary care doctor recently who stated that he wanted to continue her dose of metoprolol 25 mg once daily until her next visit. Critical Care: No Time Spent Managing Pts care (In Minutes): 55 <Roberth Hu - Last Filed: 07/11/19 16:59> Conclusions/Impression: Case discussed in detail with nurse practitioner. Agree with plan of care. Home medications will be restarted. Will monitor blood pressure closely. Will further adjust. Will continue to follow with gynecology as she is status post total abdominal hysterectomy with bilateral oophorectomy. <Suhail Chawla - Last Filed: 07/11/19 18:10>
[2019-07-11] MEDS ORDERED: METOPROLOL XL 50 MG TAB PO ONE (18:00)
--- NOTE | 2019-07-11 23:02 | OP ---
Date of Procedure: 07/11/2019 Surgeon: Elba Mccarthy MD [employer] Developer: Dru Valencia MD Preoperative Diagnoses: Menorrhagia (AUB-L), leiomyomata, and chronic blood loss anemia. Postoperative Diagnoses: Menorrhagia (AUB-L), leiomyomata and chronic blood-loss anemia, left hydrou reter, endometriosis. Anesthesia: General endotracheal. Procedures Performed: Diagnostic laparoscopy converted to total abdominal hysterectomy, bilateral sa lpingo-oophorectomy, and cystoscopy. Specimens: Uterus, bilateral tubes, and ovaries. Complications: No complications. Drains: Trejo catheter. Estimated Blood Loss: 300. Urine Output: 300. Condition: Stable. Indication: Patient is a 48-year-old referred for menorrhagia and blood loss anemia where she had a transfusion in the past. After being referred to me, she had endometrial sampling and there was no e vidence of any atypia or malignancy or leiomyosarcoma. Patient has significant sized fibroids. Ultr asound confirmed. Due to the delay from the COVID crisis, I weighted a month for this patient, conse rvatively managing her with twice a day iron. She continued to drop her hemoglobin to 7.5 and so she was transfused yesterday 2 units and brought to the OR today. Description Of Procedure: After informed consent was verified, she was taken back to OR, placed in s upine fashion on the operating table. General anesthesia given, placed in the dorsal lithotomy posit ion. Pelvic exam performed. Uterus confirmed to be levorotated and enlarged at least 4 cm above the level of the horizontal line, dropped at the level of the umbilicus. Abdomen, vulva, vagina, and perineum were prepped and draped in a sterile fashion. Trejo was placed to drain the bladder and attached with cysto tubing for retrograde filling and large VCare introduced into the uterus, the sounding length of which was 18 cm. Once this area was draped, a 1 cm upper mi dline incision was made about 5 fingerbreadths above the umbilicus. Fascia was directly incised and tagged with 0 Vicryl sutures. Peritoneum entered sharply. S-retractors were placed. Maxwell introdu derek, insufflated, site of entry checked, unremarkable. Upper abdominal surface was unremarkable. Om entum unremarkable. After placing the patient in T-jonathan, evaluation was done if the uterus can be mo daljit around now for me to be able to complete a laparoscopic hysterectomy and in moving it around and observing the approach to the posterior wall, the posterior fibroid appeared to be notched in the pel vis and we were unable to move it and pop it out of the pelvic cavity. There was no access, especial ly on the right lateral posterior aspect to the uterine vessels. There was a left hydroureter. Othe r than this, no other major findings were seen. Both ovaries and tubes appeared to be normal and the bladder area unremarkable as well. After deciding that this would be difficult to approach safely via laparoscopy, we decided to perform a laparotomy. After the Maxwell was removed, gas was desufflated. Fascia was closed with 0 Vicryl sutures that were tagged, tied to each other. Then, lower midline incision was made above the suprapubic area all the way around the periumbilical area to the upper midline about 1 cm. I then incised the skin, subcuta neous tissues, fascia with the help of a scalpel, cauterized with the cautery. Then, the fascial inc ision was extended with the help of the Bovie all the way up and down. Peritoneum picked up with 2 h emostats, opened up all the way encompassing the entire incision. The patient was placed in T-jonathan a nd bowels were packed with 2 lap sponges and wet towels and the suction of uterus was detached and it was pulled out. Large posterior lateral fibroid that was shifting the entire cervix to the left and anteriorly, possibly causing the compression of the ureter distally leading to hydroureter. No othe r problems were seen or infiltration. No clear evidence of endometriosis other than in the right tub al area where a tubal ligation was performed. Then after both the round ligaments were visualized, the right round ligament was taken down with the help of 0 Vicryl sutures using a [place] to pick it up and was taken down with the Bovie and anterio r peritoneum was dissected all the way to the bladder and peritoneum area with the help of the Bovie using the hemostat as a dissector and superiorly this was taken up to the mesosalpinx and a window wa s made in the mesosalpinx and mesovarium in order to be able to fit a Eligio clamp. Once this window was made, the infundibulopelvic ligament, the mesosalpinx were all taken down with the help of the Ivana jeffers and 2 Heaneys were placed for the proximal hemostasis. A 0 Vicryl suture was placed. Then, th e ovary and tube were detached from the IP, which was secured with the help of a free tie and a Heane y stitch. A second Eligio stitch was placed for double securing this on the right side and the poste rior peritoneum dissected all the way to the right uterosacral. A broad ligament was taken down with the help of Odalis x3 pedicles were tied with the help of 0 Vicryl sutures. Similar dissection was started on the opposite side. Round ligament was taken down between two 0 Brandin ryls and npgdpc-xl-jadup ties. Bovie used to open the anterior peritoneum to connect it to the oppos ite side and then the bladder was dissected inferiorly exposing the anterior vaginal wall. Proximally, this dissection was carried to open up the peritoneum to expose mesosalpinx and then the window was created between the infundibulopelvic ligament and the utero-ovarian ligament. Then, Hean ey clamp was placed to take down the IP and the mesosalpinx. Similarly as on the opposite side, 2 cl amps were placed. Eligio tie was placed on the specimen side. Then, once the specimen was cut, the ovary and the tube stayed with the uterus. On the right side, the specimen was detached and handed o ut, but on this side it was kept with it. Then, a simple tie and then a Eligio stitch were placed to secure the IP and posterior peritoneum was opened up to the left uterosacral and then posterior broa d ligament was skeletonized, taken down with the help of the monopolar cautery and then the broad lig ament vessels taken down with the help of Odalis. Eligio stitches were used and once the uterine ve ssels were well exposed, these were taken down with the help of Eligio clamps and 2 stitches were cloby derek in total and also for back bleeding, stitches were placed on the right side. The broad ligament was taken down with 3 more small pedicles and then the vessels were taken down along with one of jakyos e. Then, these were all tied. No back bleeding from the top. The uterus was with the hel p of the Bovie. Specimen was handed out. Then, Kochers were used to place on the anterior and light truck driver ior aspect of the uterus and then the cardinal ligaments were taken down. There was significant cerv ical elongation about 6 to 7 cm of the cervix was noted, most likely because of the large fibroids th at kept the uterus growing towards the abdominal cavity and stretched it out. So, the cardinal ligam ents were taken down with multiple bites with Radha's going all the way down to the anterior vaginal wall. Once I was here, we were able to open up the vagina by the last Radha bite that was taken on the right side. Then, circumferentially using Roseanna scissors, the colpotomy was performed to pr eserve the vaginal length. The cervical specimen was retrieved and handed out for permanent patholog y. The angles were held with Eligio clamps. They were sutured with the help of 0 Vicryl stitch at t he angle with a biloqm-cn-niuwz making sure the inner vaginal epithelium and outer layers were all in cluded including the connective tissue. The angle lugyag-xc-hopmt was placed on both sides. Then, 5 other sutures of huxweke-cw-xravc were placed in the middle to close the vaginal cuff. There was excellent hemostasis. After this, there was a small area of bleeding, which was cauterized with the Bovie on the right side and then a stitch had to be placed in the broad ligament on the rig ht side as well. Once this was done, then all the pedicles were inspected and they had excellent hem ostasis after thorough irrigation and suction. The angle sutures were cut, round ligament retention sutures were cut, then went on to irrigate the abdomen. All the sponges and towels were removed. Ba lfour retractor was used during the second half of the case after the uterine specimen was removed an d then the peritoneum and the fascia were all closed in a mass closure fashion with 0 PDS starting fr om the top and ending at the bottom and then thorough irrigation of the subcutaneous tissues were per formed with warm normal saline and interrupted 3-0 Vicryl sutures to bring the subcutaneous tissues t ogether and then shivam to close the rest. The top of incision was also closed with the help of sta ples. Trejo was removed, cystoscopy with [place] sheath, 30-degree lens, normal saline. Good look at the uterus. Both ureteric orifices were well visualized and there were strong jets of urine from them. No evidence of any bladder injury. Bladder was drained. Trejo was replaced. Vagina was cleaned up . Vaginal cuff closure was visualized in the bottom. There was excellent apposition of the edges an d closure. Before the closure of the abdomen, the ureter on the left side especially was palpated and visualized and this was safe. Instrument, needle, and sponge counts were correct at the end of the case. Patient tolerated the pro cedure well. EBL was 300. Patient will be admitted to the hospital and will be recovered and discha rged in 2 to 3 days, that is anticipated at the time of discharge. 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 Hemoglobin was after the velasco sfusion of 2 units yesterday. So, we will recheck hemoglobin in 2 hours postop and tomorrow morning as well. If her hemoglobin is less than 8 g, plan to transfuse her one more time, so that she will b e at good level. LUKE/NOEMY Voice ID: [id number] Report ID: [id number]
[2019-07-12] MEDS ORDERED: Ringers Lactate 1,000 ML IV ONE ×2 (05:45→13:06)
[2019-07-12] MEDS: METOPROLOL XL 25 MG TAB PO SCH (06:00)
[2019-07-12 06:34] LABS: MPV 9.4 fL (7.6-11.3)
[2019-07-12 07:06] LABS: BUN Blood Urea Nitrogen 14 mg/dL (7-18); Bicarbonate 25 mmol/L (21-32); Glucose Level 100 mg/dL (74-106); Potassium 3.8 mmol/L (3.5-5.1); Sodium Level 139 mmol/L (136-145)
[2019-07-12 10:23] LABS: Ferritin 5.5 ng/mL (8-388)
[2019-07-12] MEDS: SOD FERRIC GLUC COMPLX/SUCROSE 125 MG in NA CHLORIDE 0.9% 100 ML IV SCH (11:05)
[2019-07-12 11:45] LABS: Blood Morphology Comment NOTED (NOT SEEN); Platelet Estimate ADEQ; Platelets, Giant PRESENT
[2019-07-12 11:46] LABS: Anisocytosis 3+; Hypochromasia 2+
[2019-07-12] MEDS ORDERED: NA CHLORIDE 0.9% 500 ML ONE (13:06)
--- NOTE | 2019-07-12 14:43 | P.PN ---
Subjective Date of Service: 07/12/19 Primary Care Provider: Tracy Chief Complaint: Vaginal bleeding Subjective: No new changes, Doing well Patient is feeling very well today, pain is decreased. <Roberth Hu - Last Filed: 07/12/19 14:39> Date of Service: 07/12/19 <Suhail Chawla - Last Filed: 07/12/19 15:17> Review of Systems General: Unremarkable Eyes: Unremarkable ENT: Unremarkable Respiratory: Unremarkable Cardiovascular: Unremarkable Gastrointestinal: Abdominal Pain (Some mild abdominal pain) Genitourinary: Unremarkable Musculoskeletal: Unremarkable Integumentary: Unremarkable Neurological: Unremarkable Lymphatics: Unremarkable <Roberth Hu - Last Filed: 07/12/19 14:39> Physical Examination - Vital Signs Temperature: 98.5 F Blood Pressure: 114/62 Pulse: 68 Respirations: 18 Pulse Ox (%): 98 - Physical Exam General: Alert, In no apparent distress, Oriented x3 HEENT: Atraumatic, Normocephalic Neck: Supple Respiratory: Clear to auscultation bilaterally, Normal air movement Cardiovascular: No edema Capillary refill: <2 Seconds - Studies Laboratory Data (last 24 hrs) 07/12/19 06:07: Sodium 139, Potassium 3.8, BUN 14, Creatinine 0.69, Glucose 100 07/12/19 06:07: WBC 11.7 H D, Hgb 8.3 L, Hct 27.0 L, Plt Count 190 <Roberth Hu - Last Filed: 07/12/19 14:39> - Physical Exam Other Physical/Emotional Findings: Patient seen and examined with nurse practitioner. - Studies Laboratory Data (last 24 hrs) 07/12/19 06:07: Sodium 139, Potassium 3.8, BUN 14, Creatinine 0.69, Glucose 100 07/12/19 06:07: WBC 11.7 H D, Hgb 8.3 L, Hct 27.0 L, Plt Count 190 Medications List Reviewed: Yes <Suhail Chawla - Last Filed: 07/12/19 15:17> Assessment & Plan Discharge Plan: Home Plan to discharge in: 24 Hours Physician Review Additional Text: Assessment Status post total abdominal hysterectomy with bilateral oophorectomy and a cystoscopy Hypertension Anemia likely iron deficiency with some blood loss component Plan Status post total abdominal hysterectomy with bilateral oophorectomy and a cystoscopy- patient seems to be recovering well from her surgery, much more alert today. Patient reports her pain is under control and she is doing well. Nursing staff reports that janitor caretaker anticipate discharging patient tomorrow. Hypertension- the patient's blood pressure has remained within normal limits on her daily prescribed dose of metoprolol. Will continue to monitor patient's blood pressure throughout her hospitalization. Will recommend follow up with the primary care doctor after this hospitalization. Anemia likely iron deficiency with some blood loss component - iron studies obtained as patient's hemoglobin was 1 point lower at 8.3 today, patient's iron is 33.0 and ferritin is 5.5. Iron infusion ordered to help address patient's anemia. Will continue to monitor patient's H&H during her hospitalization. Time Spent Managing Pts Care (In Minutes): 55 <Roberth Hu - Last Filed: 07/12/19 14:39> Physician Review Additional Text: Patient seen and examined alongside with Roberth Hu NP. Case reviewed and discussed with him. Patient with iron deficiency anemia. Will start IV iron infusion. Blood pressure stable on current medication. Will follow along with gynecology. Will also discuss with gynecology later. <Suhail Chawla - Last Filed: 07/12/19 15:17>
[2019-07-12] MEDS: KETOROLAC 30 MG/ML INJ IV PRN (17:05)
[2019-07-12] MEDS: HYDROCODONE/APAP 5/325 MG TAB PO PRN (18:30)
[2019-07-13] MEDS: METOPROLOL XL 25 MG TAB PO SCH (06:00)
[2019-07-13] MEDS: HYDROCODONE/APAP 5/325 MG TAB PO PRN ×2 (07:00→13:00)
[2019-07-13 07:44] VITALS: O2SAT 97
[2019-07-13 08:51] VITALS: TEMP 98.3
[2019-07-13] MEDS: SOD FERRIC GLUC COMPLX/SUCROSE 125 MG in NA CHLORIDE 0.9% 100 ML IV SCH (09:29)
--- NOTE | 2019-07-13 09:46 | P.PN ---
Subjective Date of Service: 07/13/19 Primary Care Provider: Tracy Chief Complaint: Vaginal bleeding Subjective: Improving, Doing well Physical Examination - Vital Signs Temperature: 98.3 F Blood Pressure: 149/85 Pulse: 63 Respirations: 18 Pulse Ox (%): 97 - Physical Exam General: Alert, In no apparent distress, Oriented x3, Cooperative HEENT: Atraumatic Neck: Supple Respiratory: Clear to auscultation bilaterally, Normal air movement Cardiovascular: Normal pulses, Regular rate/rhythm Neurological: Normal speech, Normal strength at 5/5 x4 extr, Normal tone - Studies Medications List Reviewed: Yes Assessment & Plan Discharge Plan: Home Plan to discharge in: 24 Hours Physician Review Additional Text: Assessment Menorrhagia, Leiomyomata, endometriosis, and chronic blood loss anemia with underlying iron deficiency status post diagnostic laparoscopic converted to total abdominal hysterectomy/bilateral salpingo-oophorectomy, and cystoscopy Hypertension Plan: Menorrhagia, Leiomyomata, endometriosis, and chronic blood loss anemia with underlying iron deficiency status post diagnostic laparoscopic converted to total abdominal hysterectomy/bilateral salpingo-oophorectomy, and cystoscopy: Patient has recovered well. Nurses report gynecology plans to discharge patient today. Patient found to have severe iron deficiency. Hemoglobin stable. Patient was given transfusion prior to procedure. Will recommend iron supplementation twice daily at discharge. Patient will likely require stool softener as well. Recommend follow up CBC in 1-2 weeks to monitor progress. Will continue to follow the patient while here. Hypertension: Patient currently on her current medication from home. This has remained stable. No need to adjust medication at this time. She is to monitor her blood pressures at home daily. Recommend to maintain blood pressure less 150/80. If this consistently elevated patient may require additional medication in the future. Recommend follow up with PCP to further monitor. Time Spent Managing Pts Care (In Minutes): 55
[2019-07-13 11:45] VITALS: BP 150/77
--- NOTE | 2019-07-13 15:24 | DS ---
Date of Discharge: 07/13/2019 Admitting Diagnoses: Abnormal uterine bleeding -- leiomyomata, chronic blood loss anemia, status pos t total abdominal hysterectomy and bilateral salpingo-oophorectomy with laparotomy. Discharge Diagnoses: Abnormal uterine bleeding -- leiomyomata, chronic blood loss anemia, status pos t total abdominal hysterectomy and bilateral salpingo-oophorectomy with laparotomy and hypertension. Hospital Course: On July 10, patient had a total abdominal hysterectomy, bilateral salpingo-oophorecto my for large fibroid uterus. After recovery from the surgery, she had transferred to the floor for r ecovery from her laparotomy. 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 Then, this cathet er was removed. Oral pain medications were started. She tolerated clear liquids first on day 1, was able to empty without any problems after catheter removal, ambulated from the bed to the bathroom. Her hemoglobin level was 8.3 from 9 g after the transfusion on the day prior to the admission, so the drop of from 1 g correlates with the intravenous hydration during the hospitalization as well as blo od loss of 350. On postop day #2, still tolerating diet well. No nausea, vomiting, on regular diet for 24 hours. No flatus yet; however, ambulating in the garcia, voiding well. Pain under good control with minimal Nor co use. The patient afebrile. Vital signs were all stable. Intermittently blood pressure elevated, but abdomen soft, nondistended. Probably tender on the incision. Incision was clean, dry, and inta ct with shivam, bandage removed and visualized. Extremities, no edema or calf tenderness. SCDs in place when the patient is in bed. Assessment: 1.Postop ileus, resolving. The patient is yet to pass flatus. We will watch if she is evident to t olerate the diet in an ongoing fashion today with no nausea, vomiting, abdominal distention. She can be discharged home. 2.Chronic blood loss anemia. Iron infusion was given yesterday and due to get 1 more today because the patient is noncompliant at home and has already received transfusions. She is asymptomatic from her anemia at this point in time. She will have a CBC checked post discharge in 3 months. 3.Hypertension, mostly well controlled on oral pain medication. Dr. Chawla has seen her, appreciate that. Plan: 1.To have her shower, finished her lunch. No antibiotics needed. She has discharge plan with 1 jenny dobbins followup appointment with me for staple removal and incision check. All precautions given for incr eased vaginal bleeding, fever, foul-smelling discharge, nausea, vomiting. To call the office to elisabet ocampo. Pain prescriptions. Call to pharmacy. Patient, if not discharged today, then we will dictat e an addendum to this discharge summary. MERRY Voice ID: [id number] Report ID: [id number]
== END 2019-07-13 14:35 | disposition home or self-care (01) | DRG 742 ==
LOC: OR 06:33 → 2ND-WC 11:20
PROVIDERS: ADMIT Obstetrics & Gynecology; ATTEND Obstetrics & Gynecology
PROC: 0UJD4ZZ Inspection of Uterus and Cervix, Percutaneous Endoscopic Approach (ICD-10-PCS; 2019-07-11)
PROC: 0UT70ZZ Resection of Bilateral Fallopian Tubes, Open Approach (ICD-10-PCS; 2019-07-11)
PROC: 0UT20ZZ Resection of Bilateral Ovaries, Open Approach (ICD-10-PCS; 2019-07-11)
PROC: 0UT90ZZ Resection of Uterus, Open Approach (ICD-10-PCS; principal; 2019-07-11 08:30)
DX: D25.9 Leiomyoma of uterus, unspecified (principal); N13.4 Hydroureter; K56.7 Ileus, unspecified; N92.0 Excessive and frequent menstruation with regular cycle; N80.2 Endometriosis of fallopian tube; N80.0 Endometriosis of uterus; I10 Essential (primary) hypertension; D50.9 Iron deficiency anemia, unspecified; Z91.14 Patient's other noncompliance with medication regimen; Z98.51 Tubal ligation status
CPT/HCPCS: 36415; 36430; 80048; 81003; 81025; 82607; 82728; 83540; 84466; 85014; 85018; 85025; 86850; 86900; 86901; 86922; 88307; J0360; J0690; J1100; J1170; J2250; J2270; J2405; J2550; J2704; J2710; J2916; J3010; J7030; J7040; J7120; P9016

== ENCOUNTER 2020-05-08 08:19 | Emergency (ER) | payer OTHER ==
[2020-05-08 10:25] LABS: SARS-COV-2 RT PCR POSITIVE (NEGATIVE)
--- NOTE | 2020-05-08 10:27 | EDPHYS ---
Physician Documentation [facility] Name: Shauna Silva Age: 49 yrs Sex: Female : 1970 Arrival Date: 05/08/2020 Time: 08:22 Bed 20 Private MD: Smith Molina ED Physician Bernabe Mabry HPI: 05/08 16:30 This 49 yrs old Black Female presents to ER via Ambulatory with complaints of loss of kdr smell. 16:30 The patient has had cough since Monday and today lost her sense of smell. Onset: The kdr symptoms/episode began/occurred gradually, 3 day(s) ago. Severity of symptoms: At their worst the symptoms were mild in the emergency department the symptoms are unchanged. The patient has not experienced similar symptoms in the past. The patient has not recently seen a physician. 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 - Social history:: Smoking status: Patient denies any tobacco usage or history of. ROS: 16:30 Constitutional: Negative for fever, chills, and weight loss, Eyes: Negative for injury, kdr pain, redness, and discharge, ENT: Negative for injury, pain, and discharge, Neck: Negative for injury, pain, and swelling, Cardiovascular: Negative for chest pain, palpitations, and edema, Abdomen/GI: Negative for abdominal pain, nausea, vomiting, diarrhea, and constipation, Back: Negative for injury and pain, : Negative for injury, bleeding, discharge, and swelling, MS/Extremity: Negative for injury and deformity, Skin: Negative for injury, rash, and discoloration, Neuro: Negative for headache, weakness, numbness, tingling, and seizure activity. Psych: Negative for depression, anxiety, suicide ideation, homicidal ideation, and hallucinations, Allergy/Immunology: Negative for hives, rash, and allergies, Endocrine: Negative for neck swelling, polydipsia, polyuria, polyphagia, and marked weight changes, Hematologic/Lymphatic: Negative for swollen nodes, abnormal bleeding, and unusual bruising. 16:30 ENT: Positive for Loss of sense of smell. 16:30 Respiratory: Positive for cough, with no reported sputum, dyspnea on exertion, Negative for hemoptysis, orthopnea, pleurisy, shortness of breath, sputum production, wheezing. Exam: 16:30 Constitutional: This is a well developed, well nourished patient who is awake, alert, kdr and in no acute distress. Head/Face: Normocephalic, atraumatic. Eyes: Pupils equal round and reactive to light, extra-ocular motions intact. Lids and lashes normal. Conjunctiva and sclera are non-icteric and not injected. Cornea within normal limits. Periorbital areas with no swelling, redness, or edema. Neck: Trachea midline, no thyromegaly or masses palpated, and no cervical lymphadenopathy. Supple, full range of motion without nuchal rigidity, or vertebral point tenderness. No Meningismus. Chest/axilla: Normal chest wall appearance and motion. Nontender with no deformity. No lesions are appreciated. Cardiovascular: Regular rate and rhythm with a normal S1 and S2. No gallops, murmurs, or rubs. Normal PMI, no JVD. No pulse deficits. Respiratory: Lungs have equal breath sounds bilaterally, clear to auscultation and percussion. No rales, rhonchi or wheezes noted. No increased work of breathing, no retractions or nasal flaring. Abdomen/GI: Soft, non-tender, with normal bowel sounds. No distension or tympany. No guarding or rebound. No evidence of tenderness throughout. Back: No spinal tenderness. No costovertebral tenderness. Full range of motion. Skin: Warm, dry with normal turgor. Normal color with no rashes, no lesions, and no evidence of cellulitis. MS/ Extremity: Pulses equal, no cyanosis. Neurovascular intact. Full, normal range of motion. Neuro: Awake and alert, GCS 15, oriented to person, place, time, and situation. Cranial nerves II-XII grossly intact. Motor strength 5/5 in all extremities. Sensory grossly intact. Cerebellar exam normal. Normal gait. Psych: Awake, alert, with orientation to person, place and time. Behavior, mood, and affect are within normal limits. Vital Signs: 08:40 BP 154 / 87; Pulse 58; Resp 16 S; Temp 98.4(O); Pulse Ox 98% on R/A; Weight 83.91 kg jd3 (R); Height 5 ft. 3 in. (160.02 cm) (R); Pain 2/10; 10:37 BP 125 / 80; Pulse 58; Resp 16; Pulse Ox 98% on R/A; iw 08:40 Body Mass Index 32.77 (83.91 kg, 160.02 cm) jd3 MDM: 10:26 Patient medically screened. kdr 16:30 Data reviewed: vital signs, nurses notes, lab test result(s), radiologic studies. kdr Counseling: I had a detailed discussion with the patient and/or guardian regarding: the historical points, exam findings, and any diagnostic results supporting the discharge/admit diagnosis, lab results, radiology results, the need for outpatient follow up. 05/08 08:40 Order name: COVID-19 : Document "Date of Symptom Onset" if Symptomatic. kdr 05/08 08:40 Order name: Flu [facility] 05/08 09:35 Order name: CORONAVIRUS [facility] 05/08 09:36 Order name: Influenza Screen (A EDAK 05/08 10:25 Order name: COVID-19/FLU A+B EDAK Administered Medications: No medications were administered Disposition: 05/08/20 10:26 Discharged to Home. Impression: SARS-associated coronavirus as the cause of diseases classified elsewhere. - Condition is Stable. - Discharge Instructions: COVID-19. - Prescriptions for prednisone 10 mg Oral tablet - take 2 tablet by ORAL route 2 times per day for 5 days Take 2 tabs BID for five days then 1 tab BID for five days. Then 1 tab QD for five days. Dispense QS; 35 tablet. - Medication Reconciliation Form, Thank You Letter form. - Follow up: Smith Molina MD; When: 2 - 3 days; Reason: If symptoms return, Further diagnostic work-up, Recheck today's complaints, Continuance of care, Re-evaluation by your physician. - Problem is new. - Symptoms are unchanged. Signatures: Dispatcher [employer] [facility] Beranbe Mabry MD MD kdr Marleni Maurer RN RN iw Tim Aguilar RN RN jd3 Corrections: (The following items were deleted from the chart) 10:38 10:26 05/08/2020 10:26 Discharged to Home. Impression: SARS-associated coronavirus as iw the cause of diseases classified elsewhere. Condition is Stable. Forms are Medication Reconciliation Form, Thank You Letter, Antibiotic Education, Prescription Opioid Use. Follow up: Smith Molina; When: 2 - 3 days; Reason: If symptoms return, Further diagnostic work-up, Recheck today's complaints, Continuance of care, Re-evaluation by your physician. Problem is new. Symptoms are unchanged. kdr
--- NOTE | 2020-05-08 10:27 | ER ---
Nurse's Notes [facility] Name: Shauna Silva Age: 49 yrs Sex: Female : 1970 Arrival Date: 05/08/2020 Time: 08:22 Bed 20 Private MD: Smith Molina Diagnosis: SARS-associated coronavirus as the cause of diseases classified elsewhere Presentation: 05/08 08:37 Chief complaint: Patient states: "I had this bad cough since about Monday, today I jd3 lost my smell.". Coronavirus screen: cough unrelated to allergies, loss of taste or smell, Client presents with at least one sign or symptom that may indicate coronavirus-19. Standard/surgical mask placed on the client. Provider contacted for isolation considerations. Ebola Screen: Patient negative for fever greater than or equal to 101.5 degrees Fahrenheit, and additional compatible Ebola Virus Disease symptoms. Initial Sepsis Screen: Does the patient meet any 2 criteria? No. Patient's initial sepsis screen is negative. Does the patient have a suspected source of infection? No. Patient's initial sepsis screen is negative. Risk Assessment: Do you want to hurt yourself or someone else? Patient reports no desire to harm self or others. Onset of symptoms was May 06, 2020. 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 - Social history:: Smoking status: Patient denies any tobacco usage or history of. Screenin:59 Abuse screen: Denies threats or abuse. Denies injuries from another. Nutritional dm14 screening: No deficits noted. Tuberculosis screening: No symptoms or risk factors identified. Fall Risk None identified. Assessment: 08:59 General: Appears in no apparent distress. comfortable, well groomed, Behavior is calm, dm14 cooperative, appropriate for age. Pain: Denies pain. 09:54 Reassessment: No changes from previously documented assessment. dm14 Vital Signs: 08:40 BP 154 / 87; Pulse 58; Resp 16 S; Temp 98.4(O); Pulse Ox 98% on R/A; Weight 83.91 kg jd3 (R); Height 5 ft. 3 in. (160.02 cm) (R); Pain 2/10; 10:37 BP 125 / 80; Pulse 58; Resp 16; Pulse Ox 98% on R/A; iw 08:40 Body Mass Index 32.77 (83.91 kg, 160.02 cm) jd3 ED Course: 08:22 Patient arrived in ED. as 08:23 Smith Molina MD is Private Physician. as 08:38 Bernabe Mabry MD is Attending Physician. kdr 08:39 Triage completed. jd3 08:40 Arm band placed on. jd3 08:48 Carlyn Lyman, RN is Primary Nurse. dm14 08:59 Patient has correct armband on for positive identification. Bed in low position. Call dm14 light in reach. 08:59 Flu Sent. dm14 08:59 COVID-19 : Document "Date of Symptom Onset" if Symptomatic. Sent. dm14 10:26 Smith Molina MD is Referral Physician. kdr 10:37 No provider procedures requiring assistance completed. Patient did not have IV access iw during this emergency room visit. Administered Medications: No medications were administered Outcome: 10:26 Discharge ordered by . kdr 10:37 Discharged to home ambulatory. iw 10:37 Condition: good 10:37 Discharge instructions given to patient, Instructed on discharge instructions, follow up and referral plans. medication usage, Demonstrated understanding of instructions, follow-up care, medications, Prescriptions given X 1. 10:38 Patient left the ED. iw Signatures: Bernabe Mabry MD MD kdr Giovanna Shanks Irene, RN RN iw Tim Aguilar RN RN jd3 Carlyn Lyman RN RN dm14
[2020-05-08 19:43] VITALS: TEMP 98.4; O2SAT 98
[2020-05-08 19:44] VITALS: BP 125/80
== END 2020-05-08 10:38 | disposition home or self-care (01) ==
LOC: ER 08:19
DX: U07.1 COVID-19 (principal); I10 Essential (primary) hypertension
CPT/HCPCS: 0240U; 99283

== ENCOUNTER 2022-03-14 17:42 | Emergency (ER) | payer SELFPAY ==
[2022-03-14] MEDS ORDERED: FLUORESCEIN SODIUM 1 MG/WRAP ONE (18:04)
[2022-03-14] MEDS ORDERED: TETRACAINE HCL 0.5% 4ML OPTH ONE (18:04)
[2022-03-14] MEDS ORDERED: TOBRAMYCIN SULF 0.3% OPTH OINT ONE (18:13)
--- NOTE | 2022-03-14 18:23 | ER ---
Nurse's Notes [facility] Name: Shauna Silva Age: 51 yrs Sex: Female : 1970 Arrival Date: 03/14/2022 Time: 17:45 Bed 11 Private MD: Diagnosis: Ocular pain, right eye Presentation: 03/14 17:49 Chief complaint: Patient states: I broke a piece of glass a couple days ago and I feel iw like it's still in my right eye. Coronavirus screen: At this time, the client does not indicate any symptoms associated with coronavirus-19. Ebola Screen: Patient negative for fever greater than or equal to 101.5 degrees Fahrenheit, and additional compatible Ebola Virus Disease symptoms Patient denies exposure to infectious person. Patient denies travel to an Ebola-affected area in the 21 days before illness onset. No symptoms or risks identified at this time. Initial Sepsis Screen: Does the patient meet any 2 criteria? No. Patient's initial sepsis screen is negative. Does the patient have a suspected source of infection? No. Patient's initial sepsis screen is negative. Risk Assessment: Do you want to hurt yourself or someone else? Patient reports no desire to harm self or others. Onset of symptoms was March 12, 2022. 17:49 Method Of Arrival: Ambulatory iw 17:49 Acuity: MCKENZIE 4 iw Triage Assessment: 18:35 General: Appears in no apparent distress. Behavior is calm, cooperative, appropriate jh5 for age. 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 Last tetanus immunization: unknown. - Social history:: Smoking status: Patient denies any tobacco usage or history of. - Family history:: not pertinent. Screenin:32 [facility] ED Fall Risk Assessment (Adult) History of falling in the last 3 months, jh5 including since admission No falls in past 3 months (0 pts) Confusion or Disorientation No (0 pts) Intoxicated or Sedated No (0 pts) Impaired Gait No (0 pts) Mobility Assist Device Used No (0 pt) Altered Elimination No (0 pt) Score/Fall Risk Level 0 - 2 = Low Risk. Abuse screen: Denies threats or abuse. Denies injuries from another. Nutritional screening: No deficits noted. Tuberculosis screening: No symptoms or risk factors identified. Vital Signs: 17:51 BP 150 / 87; Pulse 65; Resp 16; Temp 97.9; Pulse Ox 99% on R/A; Weight 86.18 kg; Height iw 5 ft. 3 in. (160.02 cm); 17:51 Body Mass Index 33.66 (86.18 kg, 160.02 cm) ED Course: 17:45 Patient arrived in ED. mr 17:50 Triage completed. iw 17:51 Arm band placed on. 17:52 Carine Shah, RN is Primary Nurse. [facility] 17:57 Hieu Rogel MD is Attending Physician. [facility] 18:21 Bala Holder MD is Referral Physician. [facility] 18:32 Patient has correct armband on for positive identification. Call light in reach. Side [facility] rails up X 1. 18:32 No provider procedures requiring assistance completed. Patient did not have IV access [facility] during this emergency room visit. Administered Medications: 18:11 Drug: Tetracaine Solution (0.5 %) 2 drops {Note: Administered via .} Route: jh5 Topical; Site: right eye; 18:26 Drug: Tobramycin Ointment (0.3 %) 0.5 inches Route: Ophthalmic; Site: right eye; [facility] Medication: 18:36 VIS not applicable for this client. [facility] Outcome: 18:22 Discharge ordered by . [facility] 18:32 Discharged to home ambulatory. [facility] 18:32 Condition: good 18:32 Discharge instructions given to patient, Instructed on discharge instructions, follow up and referral plans. medication usage, safety practices, Demonstrated understanding of instructions, follow-up care, medications, Prescriptions given X 2. 18:36 Patient left the ED. [facility] Signatures: Hieu Rogel MD MD cha Rivera, Mary mr Williams, Irene, RN LIZET Carine Shah RN RN [facility]
--- NOTE | 2022-03-14 18:23 | EDPHYS ---
Physician Documentation [facility] Name: Shauna Silva Age: 51 yrs Sex: Female : 1970 Arrival Date: 03/14/2022 Time: 17:45 Bed 11 Private MD: ED Physician Hieu Rogel HPI: 03/14 18:10 This 51 yrs old Black Female presents to ER via Ambulatory with complaints of Foreign christian Body In Eye. 18:10 The patient is experiencing pain, The patient sustained a scratch, to the right eye. christian Onset: The symptoms/episode began/occurred 1 day(s) ago. Duration: the symptoms are continuous. Aggravated by nothing. Associated signs and symptoms: Pertinent positives: None. Patient wears glasses. Severity of symptoms: At their worst the symptoms were mild in the emergency department the symptoms are unchanged. The patient has not experienced similar symptoms in the past. 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 Last tetanus immunization: unknown. - Social history:: Smoking status: Patient denies any tobacco usage or history of. - Family history:: not pertinent. ROS: 18:10 Constitutional: Negative for fever, chills, and weight loss, ENT: Negative for injury, christian pain, and discharge, Neck: Negative for injury, pain, and swelling, Cardiovascular: Negative for chest pain, palpitations, and edema, Respiratory: Negative for shortness of breath, cough, wheezing, and pleuritic chest pain, Abdomen/GI: Negative for abdominal pain, nausea, vomiting, diarrhea, and constipation, Back: Negative for injury and pain, : Negative for injury, bleeding, discharge, and swelling, MS/Extremity: Negative for injury and deformity, Skin: Negative for injury, rash, and discoloration, Neuro: Negative for headache, weakness, numbness, tingling, and seizure, Psych: Negative for depression, anxiety, suicide ideation, homicidal ideation, and hallucinations, Allergy/Immunology: Negative for hives, rash, and allergies, Endocrine: Negative for neck swelling, polydipsia, polyuria, polyphagia, and marked weight changes, Hematologic/Lymphatic: Negative for swollen nodes, abnormal bleeding, and unusual bruising. 18:10 Eyes: Positive for foreign body sensation, pain, photophobia, of the outer aspect of conjuctiva of right eye, iris of right eye and inner aspect of conjuctiva of right eye. Exam: 18:10 Constitutional: This is a well developed, well nourished patient who is awake, alert, christian and in no acute distress. Head/Face: Normocephalic, atraumatic. ENT: Nares patent. No nasal discharge, no septal abnormalities noted. Tympanic membranes are normal and external auditory canals are clear. Oropharynx with no redness, swelling, or masses, exudates, or evidence of obstruction, uvula midline. Mucous membranes moist. Neck: Trachea midline, no thyromegaly or masses palpated, and no cervical lymphadenopathy. Supple, full range of motion without nuchal rigidity, or vertebral point tenderness. No Meningismus. Chest/axilla: Normal chest wall appearance and motion. Nontender with no deformity. No lesions are appreciated. Cardiovascular: Regular rate and rhythm with a normal S1 and S2. No gallops, murmurs, or rubs. Normal PMI, no JVD. No pulse deficits. Respiratory: Lungs have equal breath sounds bilaterally, clear to auscultation and percussion. No rales, rhonchi or wheezes noted. No increased work of breathing, no retractions or nasal flaring. Abdomen/GI: Soft, non-tender, with normal bowel sounds. No distension or tympany. No guarding or rebound. No evidence of tenderness throughout. Back: No spinal tenderness. No costovertebral tenderness. Full range of motion. Skin: Warm, dry with normal turgor. Normal color with no rashes, no lesions, and no evidence of cellulitis. MS/ Extremity: Pulses equal, no cyanosis. Neurovascular intact. Full, normal range of motion. Neuro: Awake and alert, GCS 15, oriented to person, place, time, and situation. Cranial nerves II-XII grossly intact. Motor strength 5/5 in all extremities. Sensory grossly intact. Cerebellar exam normal. Normal gait. Psych: Awake, alert, with orientation to person, place and time. Behavior, mood, and affect are within normal limits. 18:10 Eyes: Periorbital structures: appear normal, Pupils: equal, round, and reactive to light and accomodation, Extraocular movements: no acute changes, Conjunctiva: injected, in the right eye, Corneas: are normal, no evidence of abrasion, no foreign body, no acute changes, no evidence of abrasion, abrasion, is not appreciated, foreign body, is not appreciated, Sclera: no appreciated abnormality, Anterior chamber: Lids and lashes: funduscopic exam reveals 18:10 Eyes: Corneas: Sclera: Lids and lashes: appear normal, no acute changes, funduscopic exam reveals no obvious abnormalities, Visual sawyer: Nystagmus: is not appreciated. Vital Signs: 17:51 BP 150 / 87; Pulse 65; Resp 16; Temp 97.9; Pulse Ox 99% on R/A; Weight 86.18 kg; Height iw 5 ft. 3 in. (160.02 cm); 17:51 Body Mass Index 33.66 (86.18 kg, 160.02 cm) iw Procedures: 18:18 Performed eye eval, tetracaine, fluorescein , no abrasions, no fb, lids inverted, christian tobrex placed. MDM: 17:57 Patient medically screened. christian 18:18 Differential diagnosis: Corneal abrasion of Corneal ulcer of Foreign body in Acute christian iritis of Acute glaucoma in Ultraviolet keratitis in. Data reviewed: vital signs, nurses notes. Consideration of Admission/Observation Patient was admitted/placed on observation. Escalation of care including admission/observation considered. Management of patient was discussed with the following: Mold Tooling Technician: dr deandra angeles. I considered the following discharge prescriptions or medication management in the emergency department Medications were administered in the Emergency Department. See MAY. 03/14 17:58 Order name: Eye Tray; Complete Time: 18:01 christian Administered Medications: 18:11 Drug: Tetracaine Solution (0.5 %) 2 drops {Note: Administered via .} Route: jh5 Topical; Site: right eye; 18:26 Drug: Tobramycin Ointment (0.3 %) 0.5 inches Route: Ophthalmic; Site: right eye; jh5 Disposition Summary: 03/14/22 18:22 Discharge Ordered Location: Home christian Problem: new christian Symptoms: have improved christian Condition: Stable christian Diagnosis - Ocular pain, right eye christian Followup: christian - With: Bala Angeles MD - When: Tomorrow - Reason: Recheck today's complaints, Continuance of care, Re-evaluation by your physician Discharge Instructions: - Discharge Summary Sheet christian - How to Use Eye Drops and Eye Ointments christian - Eye Foreign Body christian - Eye Foreign Body, [id number] [facility] Forms: - Medication Reconciliation Form christian - Thank You Letter christian - Antibiotic Education christian - Prescription Opioid Use [facility] Prescriptions: - Tobrex - apply 1 inch by OPHTHALMIC route every 4-6 hours; 3.5 gram; Refills: 0, Product [facility] Selection Permitted - Tylenol-Codeine #3 300 mg-30 mg Oral - take 2 tablet by ORAL route every 6 hours; 15 tablet; Refills: 0, Product [facility] Selection Permitted Signatures: Hieu Rogel MD MD cha Williams, Irene, RN RN Carine Chang RN RN jh5
[2022-03-14 19:51] VITALS: BP 150/87; TEMP 97.9; O2SAT 99
== END 2022-03-14 18:36 | disposition home or self-care (01) ==
LOC: ER 17:42
DX: H57.11 Ocular pain, right eye (principal)
CPT/HCPCS: 99283

== ENCOUNTER 2024-01-09 10:01 | Emergency (ER) | payer OTHER, SELFPAY ==
--- OUTSIDE RECORDS SUMMARY | 2024-01-09 10:04 | XMS REPORT | Continuity of Care Document ---
Author Name Unknown Address [address] [place] [address] [address] [place] [address] [facility] thconnect Address [address] [facility] [address] [place] [address] Care Team Providers Care Immunopathologist Name Role Phone [email or web address]_Kadiyala_S Attending Clinician Unavaila ble [email or web address]_Kadiyala_S Admitting Clinician Unavaila ble Encounters Start Date/Time End Date/Time Encounter Type Admission Type Attending Clinicians Care Facility Care Department Encounter ID Source 2023-01-03 00:00:00 2023-01-03 00:00:00 Outpatient GC_GCBZW_Ka diyala_S PRIV PRIV [id number] [facility] 2023-01-02 00:00:00 2023-01-02 00:00:00 Outpatient GC_GCBZW_Ka diyala_S PRIV PRIV [id number] [facility] 2022-12-14 10:08:28 2022-12-14 10:08:28 Outpatient SFA SFA [id number] Joseph Dorsey 2022-12-12 09:16:24 2022-12-12 09:16:24 Outpatient SFA SFA [id number] Joseph Dorsey 2022-03-30 08:31:08 2022-03-30 08:31:08 Outpatient SFA SFA [id number] Joseph Dorsey Results Test Description Test Time Test Comments Results Result Co mments Source LIPID [id number] 06:09:43* Test Item Value Reference Range Interpretation Comme nts CHOLESTEROL (test code = 2210) 223 MG/DL <200 H TRIGLYCERIDES (test code = 2232) 132 MG/DL <150 HDL CHOLESTEROL (test code = 2220) 46 MG/DL >39 CALC LDL CHOL (test code = 2237) 151 MG/DL <100 H NOTE: CALCULATED LDL IS BASED ON ZOE-MACIAS METHOD WHICHINCLUDES ADJUSTABLE TRIGLYCERIDE:VLDL CHOLESTEROL RATIO.THIS FACTOR VARIES BY MEASURED TRIGLYCERIDE AND NON-HDLCHOLESTEROL CONCENTRATIONS WITH INCREASED CALCULATED LDL SEENIN HIGHER TRIGLYCERIDE OR LOWER NON-HDL SPECIMENS. FOR MOREINFORMATION, SEE CLIENT ANNOUNCEMENT AT [email or web address] [email or web address] RATIO LDL/HDL (test code = 2238) 3.28 RATIO <3.22 H HEMOGLOBIN [id number] 05:45:10* Test Item Value Reference Range Interpretation Comme nts HEMOGLOBIN A1c (test code = 38100) 5.8 % 4.2-5.6 H [employer] GUIDELINES FOR HGB A1C: PREDIABETES/INCREASED RISK . . . . . . . 5.7-6.4% DIAGNOSIS OF DIABETES . . . . . . . . . >=6.5% WITH CONFIRMATION OR APPROPRIATE SYMPTOMS NOTE: ASSAY MAY BE AFFECTED BY HEMOGLOBINOPATHIES (SICKLE CELL ANEMIA, S-C DISEASE, OTHERS) OR ARTIFICIALLY LOWERED BY DECREASED RED CELL SURVIVAL (HEMOLYTIC ANEMIAS, BLOOD LOSS, ETC.). CONSIDER ALTERNATE TESTING OR LABORATORY CONSULTATION. UNLESS OTHERWISE INDICATED, ALL TESTING PERFORMED AT [facility] [address] [place] [address] ROTOR BALANCER: CARLEY KATZ M.D. CLIA NUMBER [id number] [facility] [place]. [id number] CBC W/AUTO DIFF WITH [id number] 04:03:49* Test Item Value Reference Range Interpretation Comme nts WBC (test code = 1001) 3.9 K/UL 3.5-11.0 RBC (test code = 1002) 5.46 M/UL 3.80-5.40 H HEMOGLOBIN (test code = 1003) 11.9 G/DL 11.5-15.5 HEMATOCRIT (test code = 1004) 38.8 % 34.0-45.0 MCV (test code = 1005) 71.1 fL 80.0-99.0 L MCH (test code = 1006) 21.8 PG 25.0-33.0 L MCHC (test code = 1007) 30.7 G/DL 31.0-36.0 L RDW (test code = 1038) 15.3 % 11.5-15.0 H NEUTROPHILS (test code = 1008) 45.2 % LYMPHOCYTES (test code = 1010) 40.9 % MONOCYTES (test code = 1011) 11.1 % EOSINOPHILS (test code = 1012) 2.3 % BASOPHILS (test code = 1013) 0.5 % IMMATURE GRANULOCYTES (test code = 1036) 0.0 % NUCLEATED RBCS (test code = 1065) 0.0 /100 WBC'S See_Comment [Automated messa ge] The system which generated this result transmitted reference range: 0.0. The reference range was not used to interpret this result as normal/abnormal. PLATELET COUNT (test code = 1015) 270 K/UL 130-400 ABSOLUTE NEUTROPHILS (test code = 1066) 1.74 K/UL 1.50-7.50 ABSOLUTE LYMPHOCYTES (test code = 1067) 1.58 K/UL 1.00-4.00 ABSOLUTE MONOCYTES (test code = 1068) 0.43 K/UL 0.20-1.00 ABSOLUTE EOSINOPHILS (test code = 1040) 0.09 K/UL 0.00-0.50 ABSOLUTE BASOPHILS (test code = 1069) 0.02 K/UL 0.00-0.20 ABS IMMATURE GRANULOCYTES (test code = 1020) 0.00 K/UL 0.00-0.10 ABS NUCLEATED RBCS (test code = 22857) 0.00 K/UL 0.00-0.11
[2024-01-09] MEDS ORDERED: ONDANSETRON 4 MG (ODT) TAB ONE (11:35)
[2024-01-09] MEDS ORDERED: IBUPROFEN 200 MG TAB PO ONE (11:35)
[2024-01-09 11:57] LABS: SARS-CoV-2 Antigen CONTROL BLUE LINE VIS/BG OK; SARS-CoV-2 Antigen Rapid Res Negative (Negative)
--- NOTE | 2024-01-09 12:30 | EDPHYS ---
Physician Documentation [facility] Name: Shauna Silva Age: 53 yrs Sex: Female : 1970 Arrival Date: 01/09/2024 Time: 10:01 Bed 25 Private MD: ED Physician Kody Kimball HPI: 01/08 16:43 This 53 yrs old Black Female presents to ER via Ambulatory with complaints of Flu rt Symptoms. 16:43 Patient presents to the ED with cough, congestion, sore throat, nausea since Monday. rt Denies other acute complaints at this time, symptoms are mild in severity, no other aggravating or alleviating factors.. 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 - Infectious Disease History:: Denies. - Social history:: Smoking status: Patient denies any tobacco usage or history of. - Family history:: not pertinent. ROS: 16:43 Cardiovascular: Negative for chest pain, palpitations, and edema, Skin: Negative for rt injury, rash, and discoloration, 16:43 Constitutional: Positive for body aches, chills, fever, 16:43 ENT: Positive for rhinorrhea, sore throat, 16:43 Respiratory: Positive for cough, Negative for shortness of breath, 16:43 Abdomen/GI: Positive for nausea, Negative for abdominal pain, Exam: 16:43 Constitutional: This is a well developed, well nourished patient who is awake, alert, rt and in no acute distress. Head/Face: Normocephalic, atraumatic. Chest/axilla: Normal chest wall appearance and motion. Nontender with no deformity. No lesions are appreciated. Cardiovascular: Regular rate and rhythm with a normal S1 and S2. No gallops, murmurs, or rubs. Normal PMI, no JVD. No pulse deficits. Respiratory: Lungs have equal breath sounds bilaterally, clear to auscultation and percussion. No rales, rhonchi or wheezes noted. No increased work of breathing, no retractions or nasal flaring. Abdomen/GI: Soft, non-tender, with normal bowel sounds. No distension or tympany. No guarding or rebound. No evidence of tenderness throughout. Skin: Warm, dry with normal turgor. Normal color with no rashes, no lesions, and no evidence of cellulitis. MS/ Extremity: Pulses equal, no cyanosis. Neurovascular intact. Full, normal range of motion. Vital Signs: 10:52 BP 121 / 73; Pulse 88; Resp 17; Temp 100.5(O); Pulse Ox 95% on R/A; MAP 86 mmHg; Weight tm6 84.82 kg; Height 5 ft. 0 in. ; Pain 3/10; 10:52 Body Mass Index 36.52 (84.82 kg, 152.4 cm) tm6 10:52 Pain Scale: Adult tm6 MDM: 10:51 Medical Screening Exam initiated rt 16:43 Differential Diagnosis Flu, COVID, viral syndrome. Data reviewed: vital signs, nurses rt notes, lab test result(s). I considered the following discharge prescriptions or medication management in the emergency department Medications were administered in the Emergency Department. See MAR. Test considered but Not performed: Other Details Clear breath sounds, low suspicion for pneumonia, chest x-ray is not indicated. Care significantly affected by the following chronic conditions: Hypertension. Counseling: I had a detailed discussion with the patient and/or guardian regarding the historical points, exam findings, and any diagnostic results supporting the discharge/admit diagnosis, lab results, the need for outpatient follow up, Patient had a negative influenza screen, however, her family member with identical symptoms tested positive for flu today as well, suspect false negative, informed patient of this, but I believe that she has influenza A. She will follow-up as an outpatient.. Response to treatment: the patient's symptoms have markedly improved after treatment. 01/08 10:51 Order name: Influenza Screen (a \T\ B); Complete Time: 12:23 rt 01/08 10:51 Order name: SARS RAPID; Complete Time: 12:23 rt Administered Medications: 11:43 Drug: Ibuprofen PO 600 mg PO once Route: PO; jl7 11:44 Drug: Ondansetron Oral Disintegrating Tablet Oral Disintegrating Tablet 4 mg PO once jl7 Route: PO; Disposition Summary: 01/09/24 12:29 Discharge Ordered Notes: Location: Home rt Problem: new rt Symptoms: have improved rt Condition: Stable rt Diagnosis - Influenza due to identified novel influenza A virus rt Followup: rt - With: Private Physician - When: 2 - 3 days - Reason: Discharge Instructions: - Discharge Summary Sheet hb - Influenza, Adult, Febq-jc-Ansp rt Forms: - Work release form hb - Medication Reconciliation Form rt - Antibiotic Education rt - Prescription Opioid Use rt - Patient Portal Instructions rt - Leadership Thank You Letter rt Prescriptions: - ondansetron 4 mg Oral Tablet,disintegrating - take 1 tablet ORAL route every 6 hours; 15 tablet; Refills: 0, Product rt Selection Permitted Signatures: Dispatcher [employer] EDMS Beth Mata RN RN jl7 Kody Kimball MD MD rt Meenu Mendoza RN RN tm6 Corrections: (The following items were deleted from the chart) 10:55 10:55 Influenza Screen (A \T\ B)+BA.LAB.BRZ ordered. EDMS EDMS 10:55 10:55 SARS-COV-2 Antigen Rapid+I.LAB.BRZ ordered. EDMS EDMS
--- NOTE | 2024-01-09 12:30 | ER ---
Nurse's Notes [facility] Name: Shauna Silva Age: 53 yrs Sex: Female : 1970 Arrival Date: 01/09/2024 Time: 10:01 Bed 25 Private MD: Diagnosis: Influenza due to identified novel influenza A virus Presentation: 01/08 10:49 Chief complaint: Patient states: since Sunday 01/07, nausea, chills, congestion, cough, tm6 headache. Coronavirus screen: Vaccine status: Patient reports being unvaccinated. Client denies travel out of the [place] in the last 14 days. Ebola Screen: Patient negative for fever greater than or equal to 101.5 degrees Fahrenheit, and additional compatible Ebola Virus Disease symptoms Patient denies exposure to infectious person. Patient denies travel to an Ebola-affected area in the 21 days before illness onset. No symptoms or risks identified at this time. Risk Assessment: Do you want to hurt yourself or someone else? Patient reports no desire to harm self or others. Onset of symptoms was January 08, 2024. 10:49 Method Of Arrival: Ambulatory tm6 10:49 Acuity: MCKENZIE 4 tm6 Triage Assessment: 10:52 General: Appears uncomfortable, Behavior is calm, cooperative. Pain: Complains of pain tm6 in head. EENT: Reports nasal congestion. Neuro: Level of Consciousness is awake, alert, obeys commands, Oriented to person, place, time, situation. Cardiovascular: Patient's skin is warm and dry. Respiratory: Airway is patent Respiratory effort is even, unlabored, Respiratory pattern is regular, symmetrical. GI: Abdomen is flat, non-distended, Reports nausea. : No signs and/or symptoms were reported regarding the genitourinary system. Derm: No signs and/or symptoms reported regarding the dermatologic system. Musculoskeletal: No signs and/or symptoms reported regarding the musculoskeletal system. 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 - Infectious Disease History:: Denies. - Social history:: Smoking status: Patient denies any tobacco usage or history of. - Family history:: not pertinent. Screenin:10 [facility] ED Fall Risk Assessment (Adult) History of falling in the last 3 months, hb including since admission No falls in past 3 months (0 pts) Confusion or Disorientation No (0 pts) Intoxicated or Sedated No (0 pts) Impaired Gait No (0 pts) Mobility Assist Device Used No (0 pt) Altered Elimination No (0 pt) Score/Fall Risk Level 0 - 2 = Low Risk Oriented to surroundings, Maintained a safe environment, Educated pt \T\ family on fall prevention, incl call for assistance when getting out of bed. Abuse screen: Denies threats or abuse. Denies injuries from another. Nutritional screening: No deficits noted. Tuberculosis screening: No symptoms or risk factors identified. Assessment: 12:18 General: Appears in no apparent distress. Behavior is calm, cooperative. Pain: Pain hb currently is 3 out of 10 on a pain scale. Neuro: Level of Consciousness is awake, alert, obeys commands, Oriented to person, place, time, situation. Cardiovascular: Patient's skin is warm and dry. Respiratory: Respiratory effort is even, unlabored, Respiratory pattern is regular, symmetrical. GI: No signs and/or symptoms were reported involving the gastrointestinal system. : No signs and/or symptoms were reported regarding the genitourinary system. EENT: Reports cough, congestin, sore throat. Derm: Skin is pink, warm \T\ dry. Musculoskeletal: Reports body aches. Vital Signs: 10:52 BP 121 / 73; Pulse 88; Resp 17; Temp 100.5(O); Pulse Ox 95% on R/A; MAP 86 mmHg; Weight tm6 84.82 kg; Height 5 ft. 0 in. ; Pain 3/10; 10:52 Body Mass Index 36.52 (84.82 kg, 152.4 cm) tm6 10:52 Pain Scale: Adult tm6 ED Course: 10:16 Patient arrived in ED. mg5 10:17 Kody Kimball MD is Attending Physician. rt 10:50 Triage completed. tm6 10:52 Arm band placed on right wrist. tm6 11:31 COVID swab sent to lab. Flu and/or RSV swab sent to lab. jl7 13:06 Patient has correct armband on for positive identification. Provided Education on: hb medications, follow up. 13:06 No provider procedures requiring assistance completed. Patient did not have IV access hb during this emergency room visit. Administered Medications: 11:43 Drug: Ibuprofen PO 600 mg PO once Route: PO; jl7 11:44 Drug: Ondansetron Oral Disintegrating Tablet Oral Disintegrating Tablet 4 mg PO once jl7 Route: PO; Medication: 12:18 VIS not applicable for this client. hb Outcome: 12:29 Discharge ordered by . rt 13:06 Discharged to home ambulatory, 13:06 Condition: stable 13:06 Discharge instructions given to patient, Instructed on discharge instructions, follow up and referral plans. medication usage, Demonstrated understanding of instructions, follow-up care, medications, 13:07 Patient left the ED. hb Signatures: Prabha Bhatia, RN RN hb Beth Mata RN RN jl7 Kody Kimball MD MD rt Heidi Villalpando mg5 Meenu Mendoza RN RN tm6
[2024-01-09 13:36] VITALS: BP 121/73; TEMP 100.5; O2SAT 95
== END 2024-01-09 13:07 | disposition home or self-care (01) ==
LOC: ER 10:01
DX: J10.1 Influenza due to other identified influenza virus with other respiratory manifestations (principal); Z11.52 Encounter for screening for COVID-19
CPT/HCPCS: 36415; 87804; 87811; 99283; Q0162